=== PATIENT | female | born 1950 | race Hispanic/Latino ===

== ENCOUNTER 2018-06-21 19:45 | Inpatient (IN) | payer MEDICARE, OTHER ==
[2018-06-21] MEDS ORDERED: NACL 0.9% 1000 ML 1,000 ML IV ONE ×2 (20:01→21:18)
--- NOTE | 2018-06-21 20:01 | Emergency Department Report ---
Chief Complaint: Nausea/Vomiting/Diarrhea Stated Complaint: VOMITTING STROKE LIKE SX Time Seen by Provider: 06/21/18 19:54 - HPI History of Present Illness: 3 d hx n/v weakness expressive aphasia since 1030 per the family pt could not tell me what a pen or orellana is, as I held it for her to identify Dr Church aware deficit for over 9 hours- to CT PMH HTN OBESE HPLD HYPOTHYROID CAD DM MSE screening note: Focused history and physical exam performed. Due to findings the following was ordered: ED Disposition for MSE Condition: Stable
--- NOTE | 2018-06-21 20:30 | Cat Scan Report ---
PROCEDURE: CT HEAD/BRAIN WO CON TECHNIQUE: Computerized tomography of the head was performed without contrast material. CT DOSE LENGTH PRODUCT: 920 mGycm HISTORY: expressive aphasia COMPARISONS: None . FINDINGS: Skull and scalp: Normal . Paranasal sinuses: Normal . Ventricles and subarachnoid spaces: Normal . Cerebrum: No evidence of hemorrhage, acute infarction or mass . Cerebellum and brainstem: No evidence of hemorrhage, acute infarction or mass . Vasculature: Normal . Other: None . ASPECTS: 10 IMPRESSION: There is no evidence of an acute cranial process . This document is electronically signed by Prudence Church DO., June 21 2018 08:27:59 PM ET
[2018-06-21] MEDS ORDERED: PEPCID IV ONE (20:37)
[2018-06-21] MEDS ORDERED: ZOFRAN IV ONE (20:37)
[2018-06-21] MEDS ORDERED: ASPIRIN PO ONE (20:37)
[2018-06-21] MEDS ORDERED: HumuLIN R IV ONE (20:40)
--- NOTE | 2018-06-21 20:54 | Emergency Department Report ---
ED Neuro Deficit HPI - General Chief Complaint: Nausea/Vomiting/Diarrhea Stated Complaint: VOMITTING STROKE LIKE SX Time Seen by Provider: 06/21/18 19:54 Source: patient, family, old records reviewed Mode of arrival: Wheelchair Limitations: No Limitations - History of Present Illness Initial Comments: 68-year-old female with a past medical history of [id number] diabetes, hypertension, hypothyroidism, CAD (reported by pt but she had a cath 07/2015 showing normal coronary arteries and EF), obesity, hyperlipidemia presents to the hospital complaining of nausea and vomiting with decreased by mouth intake 3 days and expressive aphasia. Patient states he has not been able to eat or drink myself last several days secondary to vomiting. She states some mild diarrhea. Complains of mild heartburn. Denies fever, dysuria, melena, hematochezia, or hematemesis. At 10:30 AM a family member came to the home and noticed the patient had difficulty communicating. She repeat "I am okay" and she was unable to complete a sentence will repeat one relevant word when a question was asked for example repeated "light" and could not express it is light outside. Patient unsure onset of expressive aphasia but things really started yesterday. Family members gave her some Gatorade after arrival here and states that her symptoms have gradually improved but not completely back to normal. Patient presents with a glucose of 300 and hypertension states she did not take any of her medications today is otherwise compliant. She takes a baby aspirin daily but did not have any today. Patient denies abdominal pain and denies previous abdominal surgeries. PMD: Dr. Wilkerson on previous medical record review pt had a similar presentation in 07/2015. She had n,v, dehydration, expressive aphasia, and elevated trop. She underwent negative cardiac and cva workup (cardiac cath, ct head, cta head/neck brain mri, ct abd/pelvis, cta chest). - Related Data Home Medications: Home Medications Medication Instructions Recorded Confirmed Last Taken Levothyroxine Sodium [Synthroid] 125 mcg PO QDAY 08/18/15 06/21/18 08/16/15 Lisinopril [Zestril TAB] 5 mg PO QDAY 08/18/15 06/21/18 08/16/15 hydroCHLOROthiazide [HCTZ] 25 mg PO QDAY 08/18/15 06/21/18 06/18/18 metFORMIN [Glucophage] 1,000 mg PO BID 08/18/15 06/21/18 08/16/15 Dapagliflozin Propanediol [Farxiga] 10 mg PO DAILY 06/21/18 06/21/18 Unknown Sitagliptin Phosphate [Januvia] 25 mg PO DAILY 06/21/18 06/21/18 Unknown Vitamin D3 1,000 UNIT TAB 1 tab PO DAILY 06/21/18 06/21/18 Unknown Allergies/Adverse Reactions: Allergies Allergy/AdvReac Type Severity Reaction Status Date / Time liraglutide [From Victoza] Allergy Unknown Verified 06/21/18 19:49 ED Review of Systems ROS: Stated complaint: VOMITTING STROKE LIKE SX Other details as noted in HPI Comment: All other systems reviewed and negative ED Past Medical Hx - Past Medical History Hx Hypertension: Yes Hx Heart Attack/AMI: Yes Hx Congestive Heart Failure: No Hx Diabetes: Yes Hx Deep Vein Thrombosis: No Hx Liver Disease: No Hx Sickle Cell Disease: No Hx Asthma: No Hx COPD: No Hx HIV: No Additional medical history: thyroid - Surgical History Past Surgical History?: No Hx Coronary Stent: No Hx Pacemaker: No Hx Internal Defibrillator: No - Social History Smoking Status: Never Smoker Substance Use Type: None - Medications Home Medications: Home Medications Medication Instructions Recorded Confirmed Last Taken Type Levothyroxine Sodium [Synthroid] 125 mcg PO QDAY 08/18/15 06/21/18 08/16/15 History Lisinopril [Zestril TAB] 5 mg PO QDAY 08/18/15 06/21/18 08/16/15 History hydroCHLOROthiazide [HCTZ] 25 mg PO QDAY 08/18/15 06/21/18 06/18/18 History metFORMIN [Glucophage] 1,000 mg PO BID 08/18/15 06/21/18 08/16/15 History Dapagliflozin Propanediol [Farxiga] 10 mg PO DAILY 06/21/18 06/21/18 Unknown History Sitagliptin Phosphate [Januvia] 25 mg PO DAILY 06/21/18 06/21/18 Unknown History Vitamin D3 1,000 UNIT TAB 1 tab PO DAILY 06/21/18 06/21/18 Unknown History ED Neuro Physical Exam - General Limitations: No Limitations Suspected Stroke: Yes - NIHSS Assessment Interval: Baseline 1a. Level of Consciousness: alert/keenly responsive 1b. LOC Questions: answers both correctly 1c. LOC Commands: performs tasks correctly 2. Best Gaze: normal 3. Visual: no visual loss 4. Facial Palsy: normal symmetrical movement 5b. Motor Arm Right: no drift 5a. Motor Arm Left: no drift 6a. Motor Leg Left: no drift 6b. Motor Leg Right: no drift 7. Limb Ataxia: absent 8. Sensory: normal 9. Best Language: mild/moderate aphasia 10. Dysarthria: normal 11. Extinction/Inattention: no abnormality Total Score: 1 Stroke Severity: Minor Stroke - Other Other exam information: General: No limitations, patient is alert in no acute distress Head exam: Atraumatic, normocephalic Eyes exam: Normal appearance, pupils equal reactive to light, extraocular movements intact ENT: Moist mucous membrane, normal oropharynx Neck exam: Normal inspection, full range of motion, no meningismus nontender Respiratory exam: Clear to auscultation bilateral, no wheezes, rales, crackles Cardiovascular: Normal rate and rhythm, normal heart sounds Abdomen: Soft, nondistended, and nontender, with normal bowel sounds, no rebound, or guarding Extremity: Full range of motion normal inspection no deformity Back: Normal Inspection, full range of motion, no tenderness Neurologic: Alert, see nihss Psychiatric: normal affect, normal mood Skin: Warm, dry, intact ED Course Vital Signs 06/21/18 06/21/18 06/21/18 20:30 20:32 20:45 Temperature 99.2 F Pulse Rate 99 H 99 H Respiratory 21 16 18 Rate Blood Pressure Blood Pressure 187/68 [Left] O2 Sat by Pulse 99 98 Oximetry 06/21/18 06/21/18 06/21/18 20:46 21:00 21:16 Temperature Pulse Rate 96 H 105 H 102 H Respiratory 25 H 20 17 Rate Blood Pressure Blood Pressure 165/73 [Left] O2 Sat by Pulse 98 97 100 Oximetry 06/21/18 06/21/18 06/21/18 21:30 21:46 22:00 Temperature Pulse Rate 99 H 100 H 95 H Respiratory 17 20 16 Rate Blood Pressure 171/83 165/73 165/73 Blood Pressure [Left] O2 Sat by Pulse 99 98 99 Oximetry 06/21/18 06/21/18 06/21/18 22:16 22:30 22:46 Temperature Pulse Rate 94 H 92 H 95 H Respiratory 18 15 22 Rate Blood Pressure 175/74 175/74 165/73 Blood Pressure [Left] O2 Sat by Pulse 99 99 99 Oximetry 06/21/18 06/21/18 06/21/18 22:47 23:00 23:16 Temperature Pulse Rate 93 H 93 H 103 H Respiratory 20 19 22 Rate Blood Pressure 166/75 175/77 Blood Pressure 166/75 [Left] O2 Sat by Pulse 98 100 99 Oximetry 06/21/18 06/21/18 06/21/18 23:30 23:46 23:48 Temperature Pulse Rate 96 H 99 H 97 H Respiratory 12 14 20 Rate Blood Pressure 175/77 175/77 Blood Pressure 161/79 [Left] O2 Sat by Pulse 98 98 97 Oximetry 06/22/18 06/22/18 06/22/18 00:00 00:16 00:30 Temperature Pulse Rate 104 H 101 H 98 H Respiratory 21 15 30 H Rate Blood Pressure 175/77 169/71 169/71 Blood Pressure [Left] O2 Sat by Pulse 99 98 97 Oximetry 06/22/18 06/22/18 06/22/18 00:46 01:00 01:16 Temperature Pulse Rate 103 H 102 H 103 H Respiratory 31 H 24 29 H Rate Blood Pressure 160/69 160/69 160/69 Blood Pressure [Left] O2 Sat by Pulse 98 98 97 Oximetry 06/22/18 06/22/18 06/22/18 01:30 01:46 02:08 Temperature Pulse Rate Respiratory 20 19 17 Rate Blood Pressure 160/69 158/75 Blood Pressure [Left] O2 Sat by Pulse 97 97 97 Oximetry 06/22/18 06/22/18 06/22/18 02:16 02:30 02:46 Temperature Pulse Rate Respiratory 14 19 15 Rate Blood Pressure 158/75 157/68 Blood Pressure [Left] O2 Sat by Pulse 97 98 98 Oximetry 06/22/18 06/22/18 06/22/18 03:00 03:16 03:30 Temperature Pulse Rate Respiratory 18 Rate Blood Pressure 160/64 160/64 Blood Pressure [Left] O2 Sat by Pulse 97 97 97 Oximetry 06/22/18 06/22/18 06/22/18 03:46 04:00 04:16 Temperature Pulse Rate Respiratory 29 H 15 Rate Blood Pressure 165/68 165/68 Blood Pressure [Left] O2 Sat by Pulse 95 95 96 Oximetry 06/22/18 04:30 Temperature Pulse Rate Respiratory 14 Rate Blood Pressure 165/68 Blood Pressure [Left] O2 Sat by Pulse 98 Oximetry - Consultations Consultation #1: 06/21/18 21:46 consulted cardiology group [facility] since this group was involved in her care in 2016. Case discussed with Dr. Mosqueda. Since [facility] is [facility] and patient does not follow up with them in the office he defers consultation to the call group. 06/21/18 22:00 case was d/w Dr Jalloh with [facility], will consult - Lab Data Result diagrams: 06/21/18 20:16 06/22/18 01:29 Lab Results 06/21/18 06/21/18 06/21/18 Range/Units 19:51 20:16 20:16 WBC 10.2 (4.5-11.0) K/mm3 RBC 4.67 (3.65-5.03) M/mm3 Hgb 13.0 (10.1-14.3) gm/dl Hct 39.6 (30.3-42.9) % MCV 85 (79-97) fl MCH 28 (28-32) pg MCHC 33 (30-34) % RDW 15.8 H (13.2-15.2) % Plt Count 399 (140-440) K/mm3 VBG pH (7.320-7.420) Sodium 130 L (137-145) mmol/L Potassium 4.4 (3.6-5.0) mmol/L Chloride 89.4 L (98-107) mmol/L Carbon Dioxide 17 L (22-30) mmol/L Anion Gap 28 mmol/L BUN 25 H (7-17) mg/dL Creatinine 1.1 (0.7-1.2) mg/dL Estimated GFR 50 ml/min BUN/Creatinine Ratio 23 % Glucose 350 H (65-100) mg/dL POC Glucose 300 H (70-105) Ketones Quantitative (Negative) Calcium 9.5 (8.4-10.2) mg/dL Total Bilirubin 0.50 (0.1-1.2) mg/dL AST 13 (5-40) units/L ALT 6 L (7-56) units/L Alkaline Phosphatase 73 (35-129) units/L Troponin T 0.200 H* (0.00-0.029) ng/mL Total Protein 7.2 (6.3-8.2) g/dL Albumin 4.0 (3.9-5) g/dL Albumin/Globulin Ratio 1.3 % Triglycerides 133 (2-149) mg/dL Cholesterol 203 H (50-199) mg/dL LDL Cholesterol Direct 152 H (50-130) mg/dL HDL Cholesterol 55 (40-59) mg/dL Cholesterol/HDL Ratio 3.69 % Lipase 20 (13-60) units/L 06/21/18 06/21/18 Range/Units 20:16 20:16 WBC (4.5-11.0) K/mm3 RBC (3.65-5.03) M/mm3 Hgb (10.1-14.3) gm/dl Hct (30.3-42.9) % MCV (79-97) fl MCH (28-32) pg MCHC (30-34) % RDW (13.2-15.2) % Plt Count (140-440) K/mm3 VBG pH 7.327 (7.320-7.420) Sodium (137-145) mmol/L Potassium (3.6-5.0) mmol/L Chloride (98-107) mmol/L Carbon Dioxide (22-30) mmol/L Anion Gap mmol/L BUN (7-17) mg/dL Creatinine (0.7-1.2) mg/dL Estimated GFR ml/min BUN/Creatinine Ratio % Glucose (65-100) mg/dL POC Glucose (70-105) Ketones Quantitative Large (Negative) Calcium (8.4-10.2) mg/dL Total Bilirubin (0.1-1.2) mg/dL AST (5-40) units/L ALT (7-56) units/L Alkaline Phosphatase (35-129) units/L Troponin T (0.00-0.029) ng/mL Total Protein (6.3-8.2) g/dL Albumin (3.9-5) g/dL Albumin/Globulin Ratio % Triglycerides (2-149) mg/dL Cholesterol (50-199) mg/dL LDL Cholesterol Direct (50-130) mg/dL HDL Cholesterol (40-59) mg/dL Cholesterol/HDL Ratio % Lipase (13-60) units/L - EKG Data -: EKG Interpreted by Nd EKG shows normal: sinus rhythm, axis (qrs 6), QRS complexes (qrsd 98), ST-T waves (no stemi) Rate: normal (94) When compared to previous EKG there are: no significant change - Radiology Data Radiology results: report reviewed PROCEDURE: CT HEAD/BRAIN WO CON TECHNIQUE: Computerized tomography of the head was performed without contrast material. CT DOSE LENGTH PRODUCT: 920 mGycm HISTORY: expressive aphasia COMPARISONS: None . FINDINGS: Skull and scalp: Normal . Paranasal sinuses: Normal . Ventricles and subarachnoid spaces: Normal . Cerebrum: No evidence of hemorrhage, acute infarction or mass . Cerebellum and brainstem: No evidence of hemorrhage, acute infarction or mass . Vasculature: Normal . Other: None . ASPECTS: 10 IMPRESSION: There is no evidence of an acute cranial process . XR CHEST 1V AP CLINICAL INDICATION: Female, 68 years of age. WEAKNESS COMPARISON: None available. Findings: Frontal view(s) of the chest obtained. Heart upper limits normal in size. No gross focal consolidation or effusion. No gross pneumothorax. IMPRESSION: No grossly acute findings. - Medical Decision Making pt has ketosis either from dehydration or mild dka in a non insulin dependant diabetic expressive aphasia due to above issue vs cva neuro exam otherwise normal. aphasia improving but some mild difficulty persists. pt tx with NS, regular insulin bolus, and asa 325mg. trop elevation, chronic, no acute ekg changes, lower than previous values, cardiology consulted. urine Collection pending at disposition pt will be admitted to the hospital for further treatment - Differential Diagnosis CVA, ICH, encephalopathy, DKA, dehydration, renal failure, TIA - Thrombolytic Inclusion/Exclusion Thrombolytic Exclusion Criteria: Symptom Onset > 3 Hours Critical Care Time: No Critical care attestation.: If time is entered above; I have spent that time in minutes in the direct care of this critically ill patient, excluding procedure time. ED Disposition Clinical Impression: Expressive aphasia, Elevated troponin, Nausea and vomiting, Hyperglycemia, Ketosis, Dehydration, Essential (primary) hypertension Disposition: OP ADMIT IP TO THIS HOSP Is pt being admited?: Yes Does the pt Need Aspirin: Yes Condition: Stable Time of Disposition: 21:36 (Dr Mauricio/hosp)
[2018-06-21 21:06] LABS: Hematocrit 39.6 % (30.3-42.9); Mean Corpuscular HGB Conc 33 % (30-34); Mean Corpuscular Volume 85 fl (79-97); Platelet Count 399 K/mm3 (140-440); Red Blood Count 4.67 M/mm3 (3.65-5.03); Red Cell Distribution Width 15.8 % (13.2-15.2)
--- NOTE | 2018-06-21 21:12 | XRay Report ---
XR CHEST 1V AP CLINICAL INDICATION: Female, 68 years of age. WEAKNESS COMPARISON: None available. Findings: Frontal view(s) of the chest obtained. Heart upper limits normal in size. No gross focal c onsolidation or effusion. No gross pneumothorax. IMPRESSION: No grossly acute findings. This document is electronically signed by Edmar Alcantar DO., June 21 2018 09:10:42 PM ET
[2018-06-21 21:17] LABS: Calcium 9.5 mg/dL (8.4-10.2)
[2018-06-21 21:35] LABS: Chol/HDL Ratio 3.69 %
[2018-06-21] MEDS ORDERED: D50W (25GM) Syringe IV PRN (22:41)
[2018-06-21] MEDS ORDERED: TYLENOL PO PRN (22:50)
[2018-06-22] MEDS ORDERED: D5W/0.45% NACL/KCL 20 MEQ 20 MEQ/1,000 ML BAG IV ONE ×2 (00:05→08:42)
[2018-06-22] MEDS: HumuLIN R 100 UNITS in NACL 0.9% 99 ML IV SCH ×2 (00:22→02:54)
[2018-06-22] MEDS ORDERED: D5W/0.45% NACL/KCL 20 MEQ 20 MEQ/1,000 ML BAG IV SCH (01:00)
[2018-06-22 02:27] LABS: BUN/Creatinine Ratio 27; Blood Urea Nitrogen 24 mg/dL (7-17); Calcium 8.5 mg/dL (8.4-10.2); Hemolysis Index 19
[2018-06-22 02:58] LABS: Creatine Kinase MB 6.4 ng/mL (0.0-4.0)
[2018-06-22] MEDS ORDERED: ZOFRAN ONE (04:01)
[2018-06-22] MEDS: ZOFRAN IV PRN (04:07)
[2018-06-22 04:12] LABS: Bacteria,Urine 1+ /HPF (Negative); Bilirubin,Urine NEG (Negative); Blood,Urine SM (Negative); Color,Urine Yellow (Yellow); Hyaline Casts,Urine 3 /LPF; Mucus,Urine FEW /HPF; Urobilinogen,Urine < 2.0 mg/dL (<2.0)
--- NOTE | 2018-06-22 07:36 | History and Physical Report ---
CHIEF COMPLAINT: Nausea, vomiting, and diarrhea. Other complaint includes aphasia. HISTORY OF PRESENT ILLNESS: The patient is a 68-year-old female with known history of non-insulin diabetic mellitus who states she has been having nausea, vomiting, and diarrhea, going on for about 3 days and was unable to express herself and kept repeating the same word over and over without being able to explain what she meant. The patient states she has not been able to eat or drink fluid for the last few days because of vomiting and also diarrhea. The patient also complained about some mild heartburn. There was no history of fever or chills and no history of chest pain or shortness of breath. The patient was brought to the Emergency Room for evaluation. After staying for some time in the Emergency Room, the patient was able to start talking and expressing herself again. PAST MEDICAL HISTORY: Pertinent for hypertension, coronary artery disease, status post myocardial infarction, diabetes mellitus, and thyroid disorder. PAST SURGICAL HISTORY: Unremarkable. FAMILY HISTORY: Family history is noncontributory. SOCIAL HISTORY: The patient does not smoke, does not drink alcohol, and does not use illicit drug. MEDICATIONS: The patient is on Synthroid 125 mcg by mouth daily, lisinopril 5 mg by mouth daily, hydrochloride 25 mg by mouth daily, Glucophage 1000 mg by mouth twice daily, Farxiga or dapagliflozin 10 mg by mouth daily. Also, the patient is on Januvia 25 mg by mouth daily and vitamin D3 1000 units tablet 1 by mouth daily. ALLERGIES: THE PATIENT IS ALLERGIC TO LIRAGLUTIDE. REVIEW OF SYSTEMS: CONSTITUTIONAL: There is no fever, no chills, no diaphoresis. HEENT: There is no headache or sore throat. CARDIOVASCULAR SYSTEM: There is no chest pain or orthopnea. RESPIRATORY SYSTEM: There is no shortness of breath or cough. GASTROINTESTINAL SYSTEM: There is nausea. There is vomiting, diarrhea, and heartburn with epigastric discomfort with no constipation. MUSCULOSKELETAL: There is no joint pain or swelling. DERMATOLOGIC: There is no skin rash or itching. GENITOURINARY SYSTEM: There is no dysuria, hematuria, or flank pain. Rest of system review is normal. PHYSICAL EXAMINATION: GENERAL: At the time of exam, the patient was found to be alert, oriented x 3 and in acute distress. VITAL SIGNS: At the initial time of presentation showed temperature of 99.2 degrees Fahrenheit, pulse of 99, respirations 16, blood pressure 187/68, O2 sat of 98% on room air. HEENT: Shows pupils to be equal, round, reactive to light and accommodating. Extraocular muscles are intact. NECK: Supple with no JVD or carotid bruit. CARDIOVASCULAR SYSTEM: Showed normal first and second heart sounds with no gallops or murmur. RESPIRATORY SYSTEM: Showed good air entry on both sides of the lungs with no abnormal breath sounds. GASTROINTESTINAL SYSTEM: Abdomen to be full, soft, nontender with no organomegaly or rigidity. NEUROLOGIC: Shows no focal deficit. MUSCULOSKELETAL SYSTEM: Show no joint swelling or tenderness. DERMATOLOGICAL SYSTEM: Show no skin rash. GENITOURINARY SYSTEM: Showing no costovertebral angle tenderness. PERTINENT LABORATORY AND IMAGING STUDIES: The patient had urinalysis done that shows clear yellow urine with elevated urine ketones and negative urine leukocyte esterase and negative urine nitrite and normal urine WBC with 1+ bacteria. The patient's troponin level was elevated with a value of 0.2. The patient's chemistry shows low sodium of 130, low chloride of 89.4, and low CO2 of 17 with anion gap of 24. The patient's blood glucose level initially was 350 and CBC came back unremarkable. IMAGING STUDIES: The patient had CT of the head without contrast done shows no evidence of acute cranial process. Also, the patient had chest x-ray done that shows no grossly acute findings. DIAGNOSES: 1. Diabetic ketoacidosis. 2. Expressive aphasia. 3. Elevated troponin level. PLAN OF CARE: 1. The patient will be admitted to ICU using DKA protocol. 2. The patient's Accu-Chek will be every hour using the DKA protocol and also basic chemistry will be checked every 2 and 8 hours. 3. The patient will have IV normal saline which we initially run at 150 mL an hour. 4. The patient will have MRI of the brain without contrast done this morning because of expressive aphasia. 5. The patient will continue Cardiology consult with Dr. Jalloh because of elevated troponin level and will have Neurology consult with Dr. Rachael Saunders because of expressive aphasia. The patient will also have a critical care consult with Dr. Akhtar because of ICU admission requiring IV insulin drip. 6. The patient will remain n.p.o. until the patient is out of DKA. 7. The patient's IV fluid will remain normal saline until blood sugar is less than 250 mg per dL during which the patient's IV fluid will be changed to D5 half normal with potassium supplement running at 125 mL an hour. 8. The patient will be on IV Zofran 4 mg every 8 hours as needed for nausea and vomiting and will be on Tylenol 650 mg by mouth every 4 hours as needed for fever. JOB# [id number] OCN/NTS
[2018-06-22 10:35] LABS: Creatine Kinase MB 4.7 ng/mL (0.0-4.0)
[2018-06-22 10:37] LABS: BUN/Creatinine Ratio 23; Blood Urea Nitrogen 18 mg/dL (7-17); Calcium 8.8 mg/dL (8.4-10.2); Hemolysis Index 11
--- NOTE | 2018-06-22 10:44 | Progress Note ---
Assessment and Plan Expressive aphasia, r/o CVA - CT head no acute finding - wait for brain MRI - cont asp, statin, neuro eval Elevated troponin, NSTEMI - cannot start on heparin or therapeutic lovenox till MRI negative - consulted cardiology, cont aspirin and statin DKA - presented with Nausea and vomiting, Hyperglycemia, - s/p insulin drip, will place on SSI, and NPH Ketosis with Dehydration, due to DKA, improving with iv fluid Essential (primary) hypertension, monitor BP, resume home meds, IV hydralazine as needed DVT Px, lovenox Brief History: 68-year-old female with a past medical history of [id number] diabetes, hypertension, hypothyroidism, CAD (reported by pt but she had a cath 07/2015 showing normal coronary arteries and EF), obesity, hyperlipidemia presents to the hospital complaining of nausea and vomiting with decreased by mouth intake 3 days and expressive aphasia. On previous medical record review pt had a similar presentation in 07/2015. She had n,v, dehydration, expressive aphasia, and elevated trop. She underwent negative cardiac and cva workup (cardiac cath, ct head, cta head/neck brain mri, ct abd/pelvis, cta chest). This time she admitted with DKA/possible CVA and elevated troponin. Subjective Date of service: 06/22/18 Interval history: Patient seen and examined States her nausea improved and able to speak better Denies any chest pain or SOB Objective - Exam Narrative Exam: General appearance: no acute distress HEENT: Positive: PERRL, Normocephaly, Mucus Membranes Moist Neck: Positive: neck supple, trachea midline Cardiac: Positive: Reg Rate and Rhythm, S1/S2 Lungs: Positive: clear to auscultation Neuro: Positive: Grossly Intact Abdomen: Positive: Soft. Negative: Tender Skin: Negative: Rash, Wound Musculoskeletal: No Pain Extremities: Absent: edema - Constitutional Vitals: Vital Signs - 12hr 06/21/18 06/21/18 06/21/18 22:46 22:47 23:00 Temperature Pulse Rate 95 H 93 H 93 H Respiratory 22 20 19 Rate Blood Pressure 165/73 166/75 Blood Pressure 166/75 [Left] O2 Sat by Pulse 99 98 100 Oximetry 06/21/18 06/21/18 06/21/18 23:16 23:30 23:46 Temperature Pulse Rate 103 H 96 H 99 H Respiratory 22 12 14 Rate Blood Pressure 175/77 175/77 175/77 Blood Pressure [Left] O2 Sat by Pulse 99 98 98 Oximetry 06/21/18 06/22/18 06/22/18 23:48 00:00 00:16 Temperature Pulse Rate 97 H 104 H 101 H Respiratory 20 21 15 Rate Blood Pressure 175/77 169/71 Blood Pressure 161/79 [Left] O2 Sat by Pulse 97 99 98 Oximetry 06/22/18 06/22/18 06/22/18 00:30 00:46 01:00 Temperature Pulse Rate 98 H 103 H 102 H Respiratory 30 H 31 H 24 Rate Blood Pressure 169/71 160/69 160/69 Blood Pressure [Left] O2 Sat by Pulse 97 98 98 Oximetry 06/22/18 06/22/18 06/22/18 01:16 01:30 01:46 Temperature Pulse Rate 103 H Respiratory 29 H 20 19 Rate Blood Pressure 160/69 160/69 158/75 Blood Pressure [Left] O2 Sat by Pulse 97 97 97 Oximetry 06/22/18 06/22/18 06/22/18 02:08 02:16 02:30 Temperature Pulse Rate Respiratory 17 14 19 Rate Blood Pressure 158/75 Blood Pressure [Left] O2 Sat by Pulse 97 97 98 Oximetry 06/22/18 06/22/18 06/22/18 02:46 03:00 03:16 Temperature Pulse Rate Respiratory 15 Rate Blood Pressure 157/68 160/64 Blood Pressure [Left] O2 Sat by Pulse 98 97 97 Oximetry 06/22/18 06/22/18 06/22/18 03:30 03:46 04:00 Temperature Pulse Rate Respiratory 18 29 H Rate Blood Pressure 160/64 165/68 165/68 Blood Pressure [Left] O2 Sat by Pulse 97 95 95 Oximetry 06/22/18 06/22/18 06/22/18 04:16 04:30 07:00 Temperature Pulse Rate 88 Respiratory 15 14 25 H Rate Blood Pressure 165/68 168/71 Blood Pressure [Left] O2 Sat by Pulse 96 98 96 Oximetry 06/22/18 08:00 Temperature 98.5 F Pulse Rate Respiratory Rate Blood Pressure Blood Pressure [Left] O2 Sat by Pulse Oximetry - Labs CBC & Chem 7: 06/21/18 20:16 06/22/18 22:38 Labs: Abnormal lab results 06/21/18 06/21/1806/21/19 Range/Units 19:51 20:16 20:16 RDW 15.8 H (13.2-15.2) % Sodium 130 L (137-145) mmol/L Chloride 89.4 L (98-107) mmol/L Carbon Dioxide 17 L (22-30) mmol/L BUN 25 H (7-17) mg/dL Glucose 350 H (65-100) mg/dL POC Glucose 300 H (70-105) Magnesium (1.7-2.3) mg/dL ALT 6 L (7-56) units/L CK-MB (CK-2) (0.0-4.0) ng/mL CK-MB (CK-2) Rel Index (0-4) Troponin T 0.200 H* (0.00-0.029) ng/mL Cholesterol 203 H (50-199) mg/dL LDL Cholesterol Direct 152 H (50-130) mg/dL 06/21/18 06/22/18 06/22/18 Range/Units 23:49 01:10 01:22 RDW (13.2-15.2) % Sodium (137-145) mmol/L Chloride (98-107) mmol/L Carbon Dioxide (22-30) mmol/L BUN (7-17) mg/dL Glucose (65-100) mg/dL POC Glucose 230 H 203 H (70-105) Magnesium 1.50 L (1.7-2.3) mg/dL ALT (7-56) units/L CK-MB (CK-2) (0.0-4.0) ng/mL CK-MB (CK-2) Rel Index (0-4) Troponin T (0.00-0.029) ng/mL Cholesterol (50-199) mg/dL LDL Cholesterol Direct (50-130) mg/dL 06/22/18 06/22/18 06/22/18 Range/Units 01:29 01:29 02:54 RDW (13.2-15.2) % Sodium 132 L (137-145) mmol/L Chloride (98-107) mmol/L Carbon Dioxide 14 L (22-30) mmol/L BUN 24 H (7-17) mg/dL Glucose 208 H (65-100) mg/dL POC Glucose 217 H (70-105) Magnesium (1.7-2.3) mg/dL ALT (7-56) units/L CK-MB (CK-2) 6.4 H (0.0-4.0) ng/mL CK-MB (CK-2) Rel Index 9.8 H (0-4) Troponin T 0.134 H* D (0.00-0.029) ng/mL Cholesterol (50-199) mg/dL LDL Cholesterol Direct (50-130) mg/dL 06/22/18 06/22/18 06/22/18 Range/Units 03:51 05:10 06:38 RDW (13.2-15.2) % Sodium (137-145) mmol/L Chloride (98-107) mmol/L Carbon Dioxide (22-30) mmol/L BUN (7-17) mg/dL Glucose (65-100) mg/dL POC Glucose 210 H 200 H 199 H (70-105) Magnesium (1.7-2.3) mg/dL ALT (7-56) units/L CK-MB (CK-2) (0.0-4.0) ng/mL CK-MB (CK-2) Rel Index (0-4) Troponin T (0.00-0.029) ng/mL Cholesterol (50-199) mg/dL LDL Cholesterol Direct (50-130) mg/dL 06/22/18 06/22/18 06/22/18 Range/Units 07:36 08:38 09:44 RDW (13.2-15.2) % Sodium (137-145) mmol/L Chloride (98-107) mmol/L Carbon Dioxide (22-30) mmol/L BUN (7-17) mg/dL Glucose (65-100) mg/dL POC Glucose 169 H 184 H 183 H (70-105) Magnesium (1.7-2.3) mg/dL ALT (7-56) units/L CK-MB (CK-2) (0.0-4.0) ng/mL CK-MB (CK-2) Rel Index (0-4) Troponin T (0.00-0.029) ng/mL Cholesterol (50-199) mg/dL LDL Cholesterol Direct (50-130) mg/dL 06/22/18 Range/Units 09:57 RDW (13.2-15.2) % Sodium 134 L (137-145) mmol/L Chloride (98-107) mmol/L Carbon Dioxide 18 L (22-30) mmol/L BUN 18 H (7-17) mg/dL Glucose 190 H (65-100) mg/dL POC Glucose (70-105) Magnesium (1.7-2.3) mg/dL ALT (7-56) units/L CK-MB (CK-2) 4.7 H (0.0-4.0) ng/mL CK-MB (CK-2) Rel Index 7.3 H (0-4) Troponin T 0.076 H D (0.00-0.029) ng/mL Cholesterol (50-199) mg/dL LDL Cholesterol Direct (50-130) mg/dL
[2018-06-22] MEDS ORDERED: NON-FORMULARY (Dapagliflozin Propanediol [Farxiga] 10 MG) PO SCH (12:00)
[2018-06-22] MEDS ORDERED: LEVOTHYROXINE SODIUM 125 MCG PO SCH (12:00)
[2018-06-22] MEDS ORDERED: ZESTRIL PO SCH (12:00)
[2018-06-22] MEDS ORDERED: NACL 0.9% 1000 ML 1,000 ML ONE (12:28)
[2018-06-22] MEDS: NACL 0.9% 1000 ML 1,000 ML IV SCH ×2 (12:45→22:32)
[2018-06-22] MEDS ORDERED: HumuLIN R ONE (12:55)
[2018-06-22] MEDS ORDERED: ZESTRIL ONE (12:56)
[2018-06-22] MEDS ORDERED: ASPIRIN ONE (12:57)
[2018-06-22] MEDS: ZESTRIL PO SCH (12:59)
[2018-06-22] MEDS: ASPIRIN PO SCH (12:59)
[2018-06-22] MEDS: HumuLIN R SUB-Q SCH ×3 (13:05→22:31)
--- NOTE | 2018-06-22 13:35 | Consultation ---
History of Present Illness Consult date: 06/22/18 Requesting physician: MARY SANCHEZ Reason for consult: other (DKA) History of present illness: PULMONARY/CCM CONSULT NOTE (Full dictation # ) Please see dictated notes for full details Medications and Allergies Allergies Allergy/AdvReac Type Severity Reaction Status Date / Time liraglutide [From Victoza] Allergy Unknown Verified 06/21/18 19:49 Home Medications Medication Instructions Recorded Confirmed Last Taken Type Levothyroxine Sodium [Synthroid] 125 mcg PO QDAY 08/18/15 06/21/18 08/16/15 History Lisinopril [Zestril TAB] 5 mg PO QDAY 08/18/15 06/21/18 08/16/15 History hydroCHLOROthiazide [HCTZ] 25 mg PO QDAY 08/18/15 06/21/18 06/18/18 History metFORMIN [Glucophage] 1,000 mg PO BID 08/18/15 06/21/18 08/16/15 History Dapagliflozin Propanediol [Farxiga] 10 mg PO DAILY 06/21/18 06/21/18 Unknown History Sitagliptin Phosphate [Januvia] 25 mg PO DAILY 06/21/18 06/21/18 Unknown History Vitamin D3 1,000 UNIT TAB 1 tab PO DAILY 06/21/18 06/21/18 Unknown History Active Meds: Active Medications Acetaminophen (Tylenol) 650 mg PO Q4H PRN PRN Reason: Fever >101 Aspirin (Aspirin) 325 mg PO QDAY CHRISTINA Last Admin: 06/22/18 12:59 Dose: 325 mg Documented by: Atorvastatin Calcium (Lipitor) 40 mg PO QHS CHRISTINA Dextrose (D50w (25gm) Syringe) 0 ml IV PRN PRN PRN Reason: Hypoglycemia Sodium Chloride (Nacl 0.9% 1000 Ml) 1,000 mls @ 100 mls/hr IV DIRECT CHRISTINA Last Admin: 06/22/18 12:45 Dose: 100 mls/hr Documented by: Insulin Human NPH (Humulin N) 5 unit SUB-Q BIDDIAB CHRISTINA Insulin Human Regular (Humulin R) 0 units SUB-Q ACHS CHRISTINA; Protocol Last Admin: 06/22/18 13:05 Dose: 1 units Documented by: Levothyroxine Sodium (Synthroid) 125 mcg PO QDAY CHRISTINA Lisinopril (Zestril) 5 mg PO QDAY CHRISTINA Last Admin: 06/22/18 12:59 Dose: 5 mg Documented by: Miscellaneous Medication (Dapagliflozin Propanediol [Farxiga]) 10 mg PO DAILY [facility]LY [facility], 1928–1983 Miscellaneous Medication (Vitamin D3 1,000 Unit Tab) 1 tab PO DAILY FOR[facility]LY [facility], 1928–1983 Ondansetron HCl (Zofran) 4 mg IV Q8H PRN PRN Reason: Nausea And Vomiting Last Admin: 06/22/18 04:07 Dose: 4 mg Documented by: Physical Examination Vital signs: Vital Signs Pulse Resp Pulse Ox 99 H 21 99 06/21/18 20:30 06/21/18 20:30 06/21/18 20:30 Results - Laboratory Findings CBC and BMP: 06/21/18 20:16 06/22/18 09:57 Abnormal lab findings: Abnormal Labs 06/21/18 06/21/18 06/21/18 19:51 20:16 20:16 RDW 15.8 H Sodium 130 L Chloride 89.4 L Carbon Dioxide 17 L BUN 25 H Glucose 350 H POC Glucose 300 H Magnesium ALT 6 L CK-MB (CK-2) CK-MB (CK-2) Rel Index Troponin T 0.200 H* Cholesterol 203 H LDL Cholesterol Direct 152 H 06/21/18 06/22/18 06/22/18 23:49 01:10 01:22 RDW Sodium Chloride Carbon Dioxide BUN Glucose POC Glucose 230 H 203 H Magnesium 1.50 L ALT CK-MB (CK-2) CK-MB (CK-2) Rel Index Troponin T Cholesterol LDL Cholesterol Direct 06/22/18 06/22/18 06/22/18 01:29 01:29 02:54 RDW Sodium 132 L Chloride Carbon Dioxide 14 L BUN 24 H Glucose 208 H POC Glucose 217 H Magnesium ALT CK-MB (CK-2) 6.4 H CK-MB (CK-2) Rel Index 9.8 H Troponin T 0.134 H* D Cholesterol LDL Cholesterol Direct 06/22/18 06/22/18 06/22/18 03:51 05:10 06:38 RDW Sodium Chloride Carbon Dioxide BUN Glucose POC Glucose 210 H 200 H 199 H Magnesium ALT CK-MB (CK-2) CK-MB (CK-2) Rel Index Troponin T Cholesterol LDL Cholesterol Direct 06/22/18 06/22/18 06/22/18 07:36 08:38 09:44 RDW Sodium Chloride Carbon Dioxide BUN Glucose POC Glucose 169 H 184 H 183 H Magnesium ALT CK-MB (CK-2) CK-MB (CK-2) Rel Index Troponin T Cholesterol LDL Cholesterol Direct 06/22/18 06/22/18 06/22/18 09:57 10:56 12:35 RDW Sodium 134 L Chloride Carbon Dioxide 18 L BUN 18 H Glucose 190 H POC Glucose 169 H 175 H Magnesium ALT CK-MB (CK-2) 4.7 H CK-MB (CK-2) Rel Index 7.3 H Troponin T 0.076 H D Cholesterol LDL Cholesterol Direct
--- NOTE | 2018-06-22 13:59 | Progress Note ---
Subjective Date of service: 06/22/18 Interval history: patient seen and assessed she is neuro stable aphasia has gone recommend MRI and carotid/ ECHO suspect diabetes is cause full note is dictated Objective - Vital Sign Vital Signs - 12hr 06/22/18 06/22/18 06/22/18 02:08 02:16 02:30 Temperature Pulse Rate Respiratory 17 14 19 Rate Blood Pressure 158/75 O2 Sat by Pulse 97 97 98 Oximetry 06/22/18 06/22/18 06/22/18 02:46 03:00 03:16 Temperature Pulse Rate Respiratory 15 Rate Blood Pressure 157/68 160/64 O2 Sat by Pulse 98 97 97 Oximetry 06/22/18 06/22/18 06/22/18 03:30 03:46 04:00 Temperature Pulse Rate Respiratory 18 29 H Rate Blood Pressure 160/64 165/68 165/68 O2 Sat by Pulse 97 95 95 Oximetry 06/22/18 06/22/18 06/22/18 04:16 04:30 07:00 Temperature Pulse Rate 88 Respiratory 15 14 25 H Rate Blood Pressure 165/68 168/71 O2 Sat by Pulse 96 98 96 Oximetry 06/22/18 06/22/18 06/22/18 08:00 09:00 10:00 Temperature 98.5 F Pulse Rate 89 84 Respiratory 37 H 20 Rate Blood Pressure 168/68 172/75 O2 Sat by Pulse 95 99 Oximetry 06/22/18 06/22/18 11:00 12:39 Temperature Pulse Rate 85 Respiratory 24 Rate Blood Pressure 175/82 170/67 O2 Sat by Pulse 98 Oximetry - Laboratory Findings CBC and BMP: 06/21/18 20:16 06/22/18 09:57 Abnormal Lab Findings: Abnormal Labs 06/21/18 06/21/18 06/21/18 19:51 20:16 20:16 RDW 15.8 H Sodium 130 L Chloride 89.4 L Carbon Dioxide 17 L BUN 25 H Glucose 350 H POC Glucose 300 H Magnesium ALT 6 L CK-MB (CK-2) CK-MB (CK-2) Rel Index Troponin T 0.200 H* Cholesterol 203 H LDL Cholesterol Direct 152 H 06/21/18 06/22/18 06/22/18 23:49 01:10 01:22 RDW Sodium Chloride Carbon Dioxide BUN Glucose POC Glucose 230 H 203 H Magnesium 1.50 L ALT CK-MB (CK-2) CK-MB (CK-2) Rel Index Troponin T Cholesterol LDL Cholesterol Direct 06/22/18 06/22/18 06/22/18 01:29 01:29 02:54 RDW Sodium 132 L Chloride Carbon Dioxide 14 L BUN 24 H Glucose 208 H POC Glucose 217 H Magnesium ALT CK-MB (CK-2) 6.4 H CK-MB (CK-2) Rel Index 9.8 H Troponin T 0.134 H* D Cholesterol LDL Cholesterol Direct 06/22/18 06/22/18 06/22/18 03:51 05:10 06:38 RDW Sodium Chloride Carbon Dioxide BUN Glucose POC Glucose 210 H 200 H 199 H Magnesium ALT CK-MB (CK-2) CK-MB (CK-2) Rel Index Troponin T Cholesterol LDL Cholesterol Direct 06/22/18 06/22/18 06/22/18 07:36 08:38 09:44 RDW Sodium Chloride Carbon Dioxide BUN Glucose POC Glucose 169 H 184 H 183 H Magnesium ALT CK-MB (CK-2) CK-MB (CK-2) Rel Index Troponin T Cholesterol LDL Cholesterol Direct 06/22/18 06/22/18 06/22/18 09:57 10:56 12:35 RDW Sodium 134 L Chloride Carbon Dioxide 18 L BUN 18 H Glucose 190 H POC Glucose 169 H 175 H Magnesium ALT CK-MB (CK-2) 4.7 H CK-MB (CK-2) Rel Index 7.3 H Troponin T 0.076 H D Cholesterol LDL Cholesterol Direct
--- NOTE | 2018-06-22 14:20 | Progress Note ---
Assessment and Plan Patient awake. Resting on room air. O2 saturation 95%. No complaint of chest pain or shortness of breath or cough at this time. - Patient Problems (1) Chest pain Current Visit: No Status: Acute Qualifiers: Chest pain type: unspecified Qualified Code(s): R07.9 - Chest pain, unspecified Plan to address problem: Troponin is elevated. Recommend to consult cardiology. (2) Dehydration Current Visit: Yes Status: Acute Plan to address problem: Improved. (3) Nausea and vomiting Current Visit: Yes Status: Acute Plan to address problem: On Zofran. (4) Essential (primary) hypertension Current Visit: Yes Status: Chronic Plan to address problem: Management as per primary care. (5) Diabetes mellitus Current Visit: No Status: Chronic Qualifiers: Diabetes mellitus type: type 2 Diabetes mellitus complication status: without complication Qualified Code(s): E11.9 - Type 2 diabetes mellitus without complications Plan to address problem: Management as per primary care. Subjective Date of service: 06/22/18 Interval history: Patient awake. Resting on room air. O2 saturation 95%. No complaint of chest pain or shortness of breath or cough at this time. Objective Vital Signs - 12hr 06/22/18 06/22/18 06/22/18 02:16 02:30 02:46 Temperature Pulse Rate Respiratory 14 19 15 Rate Blood Pressure 158/75 157/68 O2 Sat by Pulse 97 98 98 Oximetry 06/22/18 06/22/18 06/22/18 03:00 03:16 03:30 Temperature Pulse Rate Respiratory 18 Rate Blood Pressure 160/64 160/64 O2 Sat by Pulse 97 97 97 Oximetry 06/22/18 06/22/18 06/22/18 03:46 04:00 04:16 Temperature Pulse Rate Respiratory 29 H 15 Rate Blood Pressure 165/68 165/68 O2 Sat by Pulse 95 95 96 Oximetry 06/22/18 06/22/18 06/22/18 04:30 07:00 08:00 Temperature 98.5 F Pulse Rate 88 Respiratory 14 25 H Rate Blood Pressure 165/68 168/71 O2 Sat by Pulse 98 96 Oximetry 06/22/18 06/22/18 06/22/18 09:00 10:00 11:00 Temperature Pulse Rate 89 84 85 Respiratory 37 H 20 24 Rate Blood Pressure 168/68 172/75 175/82 O2 Sat by Pulse 95 99 98 Oximetry 06/22/18 06/22/18 06/22/18 12:39 13:03 14:05 Temperature Pulse Rate 83 Respiratory 18 Rate Blood Pressure 170/67 184/68 184/84 O2 Sat by Pulse 97 Oximetry 06/22/18 14:06 Temperature 98.1 F Pulse Rate Respiratory Rate Blood Pressure O2 Sat by Pulse Oximetry Constitutional: no acute distress, alert Eyes: non-icteric ENT: oropharynx moist Neck: supple, no lymphadenopathy Ascultation: Bilateral: clear Cardiovascular: regular rate and rhythm Gastrointestinal: normoactive bowel sounds, soft, non-tender Integumentary: normal Extremities: no cyanosis, no edema Neurologic: normal mental status Psychiatric: mood appropriate CBC and BMP: 06/21/18 20:16 06/22/18 09:57 Abnormal lab findings: Abnormal Labs 06/21/18 06/21/18 06/21/18 19:51 20:16 20:16 RDW 15.8 H Sodium 130 L Chloride 89.4 L Carbon Dioxide 17 L BUN 25 H Glucose 350 H POC Glucose 300 H Magnesium ALT 6 L CK-MB (CK-2) CK-MB (CK-2) Rel Index Troponin T 0.200 H* Cholesterol 203 H LDL Cholesterol Direct 152 H 06/21/18 06/22/18 06/22/18 23:49 01:10 01:22 RDW Sodium Chloride Carbon Dioxide BUN Glucose POC Glucose 230 H 203 H Magnesium 1.50 L ALT CK-MB (CK-2) CK-MB (CK-2) Rel Index Troponin T Cholesterol LDL Cholesterol Direct 06/22/18 06/22/18 06/22/18 01:29 01:29 02:54 RDW Sodium 132 L Chloride Carbon Dioxide 14 L BUN 24 H Glucose 208 H POC Glucose 217 H Magnesium ALT CK-MB (CK-2) 6.4 H CK-MB (CK-2) Rel Index 9.8 H Troponin T 0.134 H* D Cholesterol LDL Cholesterol Direct 06/22/18 06/22/18 06/22/18 03:51 05:10 06:38 RDW Sodium Chloride Carbon Dioxide BUN Glucose POC Glucose 210 H 200 H 199 H Magnesium ALT CK-MB (CK-2) CK-MB (CK-2) Rel Index Troponin T Cholesterol LDL Cholesterol Direct 06/22/18 06/22/18 06/22/18 07:36 08:38 09:44 RDW Sodium Chloride Carbon Dioxide BUN Glucose POC Glucose 169 H 184 H 183 H Magnesium ALT CK-MB (CK-2) CK-MB (CK-2) Rel Index Troponin T Cholesterol LDL Cholesterol Direct 06/22/18 06/22/18 06/22/18 09:57 10:56 12:35 RDW Sodium 134 L Chloride Carbon Dioxide 18 L BUN 18 H Glucose 190 H POC Glucose 169 H 175 H Magnesium ALT CK-MB (CK-2) 4.7 H CK-MB (CK-2) Rel Index 7.3 H Troponin T 0.076 H D Cholesterol LDL Cholesterol Direct Chest x-ray: report reviewed, image reviewed (No acute Process)
--- NOTE | 2018-06-22 14:44 | Consultation ---
History of Present Illness Consult date: 06/22/18 Requesting physician: FARAZ ERVIN Consult reason: elevated troponin History of present illness: The pt is a 68-year-old female with a past medical history of diabetes, hypertension, HLP, hypothyroidism, obesity. She presented with c/o persistent nausea and vomiting with decreased by mouth intake 3 days. She believed she had food poisoning. Per the chart, pt also reported expressive aphasia, although she does not mention this on our evaluation. Pt found to have DKA following arrival. She was also found to have elevated troponins and thus cardiology has been consulted. Pt underwent LHC in 07/2015 for elevated troponins which showed normal coronaries and normal LV function. Pt denies any prior cardiac issues, including CAD, HF or arrhythmia. She does not regularly see a inseminator. Past History Past Medical History: diabetes, hypertension, hyperlipidemia, hypothyroidism Medications and Allergies Allergies Allergy/AdvReac Type Severity Reaction Status Date / Time liraglutide [From Victoza] Allergy Unknown Verified 06/21/18 19:49 Home Medications Medication Instructions Recorded Confirmed Last Taken Type Levothyroxine Sodium [Synthroid] 125 mcg PO QDAY 08/18/15 06/21/18 08/16/15 History Lisinopril [Zestril TAB] 5 mg PO QDAY 08/18/15 06/21/18 08/16/15 History hydroCHLOROthiazide [HCTZ] 25 mg PO QDAY 08/18/15 06/21/18 06/18/18 History metFORMIN [Glucophage] 1,000 mg PO BID 08/18/15 06/21/18 08/16/15 History Dapagliflozin Propanediol [Farxiga] 10 mg PO DAILY 06/21/18 06/21/18 Unknown History Sitagliptin Phosphate [Januvia] 25 mg PO DAILY 06/21/18 06/21/18 Unknown History Vitamin D3 1,000 UNIT TAB 1 tab PO DAILY 06/21/18 06/21/18 Unknown History Active Meds: Active Medications Acetaminophen (Tylenol) 650 mg PO Q4H PRN PRN Reason: Fever >101 Aspirin (Aspirin) 325 mg PO QDAY [facility] Last Admin: 06/22/18 12:59 Dose: 325 mg Documented by: Atorvastatin Calcium (Lipitor) 40 mg PO QHS [facility] Dextrose (D50w (25gm) Syringe) 0 ml IV PRN PRN PRN Reason: Hypoglycemia Sodium Chloride (Nacl 0.9% 1000 Ml) 1,000 mls @ 100 mls/hr IV DIRECT [facility] Last Admin: 06/22/18 12:45 Dose: 100 mls/hr Documented by: Insulin Human NPH (Humulin N) 5 unit SUB-Q BIDDIAB [facility] Insulin Human Regular (Humulin R) 0 units SUB-Q ACHS [facility]; Protocol Last Admin: 06/22/18 13:05 Dose: 1 units Documented by: Levothyroxine Sodium (Synthroid) 125 mcg PO QDAY [facility] Lisinopril (Zestril) 5 mg PO QDAY [facility] Last Admin: 06/22/18 12:59 Dose: 5 mg Documented by: Miscellaneous Medication (Dapagliflozin Propanediol [Farxiga]) 10 mg PO DAILY [facility] Miscellaneous Medication (Vitamin D3 1,000 Unit Tab) 1 tab PO DAILY [facility] Ondansetron HCl (Zofran) 4 mg IV Q8H PRN PRN Reason: Nausea And Vomiting Last Admin: 06/22/18 04:07 Dose: 4 mg Documented by: Review of Systems Constitutional: no weight loss, no weight gain, no fever, no chills, no sweats Ears, nose, mouth and throat: no ear pain, no nose pain, no sinus pressure, no sinus pain Cardiovascular: no chest pain, no orthopnea, no palpitations, no rapid/irregular heart beat, no edema, no syncope, no lightheadedness, no shortness of breath, no dyspnea on exertion, no leg edema Respiratory: no cough, no shortness of breath, no dyspnea on exertion, no congestion, no wheezing, no pain Gastrointestinal: nausea, vomiting, no diarrhea, no constipation, no change in bowel habits Genitourinary Female: no pelvic pain, no flank pain, no dysuria, no urinary frequency, no urgency Musculoskeletal: no neck stiffness, no neck pain, no shooting arm pain, no arm numbness/tingling, no low back pain, no shooting leg pain Integumentary: no rash, no pruritis, no redness, no sores, no wounds Neurological: no head injury, no paralysis, no weakness, no parathesias, no numbness, no tingling, no seizures, no syncope Psychiatric: no anxiety Endocrine: no cold intolerance, no heat intolerance Hematologic/Lymphatic: no easy bruising, no easy bleeding Allergic/Immunologic: no urticaria, no wheezing Physical Examination Vital Signs Pulse Resp Pulse Ox 99 H 21 99 06/21/18 20:30 06/21/18 20:30 06/21/18 20:30 General appearance: no acute distress HEENT: Positive: PERRL, Normocephaly, Mucus Membranes Moist Neck: Positive: neck supple, trachea midline Cardiac: Positive: Reg Rate and Rhythm, S1/S2 Lungs: Positive: clear to auscultation Neuro: Positive: Grossly Intact Abdomen: Positive: Soft. Negative: Tender Skin: Negative: Rash, Wound Musculoskeletal: No Pain Extremities: Absent: edema Results 06/21/18 20:16 06/22/18 09:57 Cardiac Enzymes 06/21/18 06/22/18 06/22/18 Range/Units 20:16 01:29 09:57 AST 13 (5-40) units/L CK-MB (CK-2) 6.4 H 4.7 H (0.0-4.0) ng/mL Lipids 06/21/18 Range/Units 20:16 Triglycerides 133 (2-149) mg/dL Cholesterol 203 H (50-199) mg/dL HDL Cholesterol 55 (40-59) mg/dL Cholesterol/HDL Ratio 3.69 % CBC 06/21/18 Range/Units 20:16 WBC 10.2 (4.5-11.0) K/mm3 RBC 4.67 (3.65-5.03) M/mm3 Hgb 13.0 (10.1-14.3) gm/dl Hct 39.6 (30.3-42.9) % Plt Count 399 (140-440) K/mm3 Comprehensive Metabolic Panel 06/21/18 06/22/18 06/22/18 Range/Units 20:16 01:29 09:57 Sodium 130 L 132 L 134 L (137-145) mmol/L Potassium 4.4 3.9 4.0 (3.6-5.0) mmol/L Chloride 89.4 L 98.6 100.2 (98-107) mmol/L Carbon Dioxide 17 L 14 L 18 L (22-30) mmol/L BUN 25 H 24 H 18 H (7-17) mg/dL Creatinine 1.1 0.9 0.8 (0.7-1.2) mg/dL Glucose 350 H 208 H 190 H (65-100) mg/dL Calcium 9.5 8.5 8.8 (8.4-10.2) mg/dL AST 13 (5-40) units/L ALT 6 L (7-56) units/L Alkaline Phosphatase 73 (35-129) units/L Total Protein 7.2 (6.3-8.2) g/dL Albumin 4.0 (3.9-5) g/dL - Imaging and Cardiology Echo: pending Cardiac cath: report reviewed (07/2015 for elevated troponins which showed normal coronaries and normal LV function) EKG: report reviewed, image reviewed EKG interpretations - Telemetry EKG Rhythm: Sinus Rhythm - EKG Sinus rhythms and dysrhythmias: sinus rhythm Repolarization changes or abnormalities: ST or T wave suggestive of ischemia Assessment and Plan Currently stable cardiac status. Pt with troponin elevation pattern c/w NSTEMI type II, pt denies any cardiac complaints. Also noted to have abnormal ECG, which was abnormal in 2016. Pt underwent LHC in 2016 which showed normal coronaries and normal LV function. F/u echo and consider stress test prior to hospital discharge. Cont ASA and lipitor. Optimize BPs - initiate lopressor, titrate home lisinopril as tolerated. The patient has been seen in conjunction with Dr. Eros Burnett who agrees with the assessment and plan of care. - Patient Problems (1) DKA (diabetic ketoacidoses) Current Visit: Yes Status: Acute (2) NSTEMI (non-ST elevated myocardial infarction) Current Visit: Yes Status: Acute Plan to address problem: type 2 (3) Abnormal ECG Current Visit: Yes Status: Chronic (4) HTN (hypertension) Current Visit: Yes Status: Chronic (5) Hyperlipidemia Current Visit: Yes Status: Chronic (6) Diabetes mellitus Current Visit: Yes Status: Chronic Qualifiers: Diabetes mellitus type: type 2 Diabetes mellitus complication status: without complication Qualified Code(s): E11.9 - Type 2 diabetes mellitus without complications (7) Hypothyroidism Current Visit: Yes Status: Chronic
[2018-06-22 15:52] LABS: BUN/Creatinine Ratio 19; Blood Urea Nitrogen 15 mg/dL (7-17); Calcium 8.7 mg/dL (8.4-10.2); Hemolysis Index 6
[2018-06-22] MEDS: VITAMIN D3 PO SCH (22:31)
[2018-06-22] MEDS: LOPRESSOR PO SCH (22:31)
[2018-06-22 23:05] LABS: BUN/Creatinine Ratio 17; Blood Urea Nitrogen 12 mg/dL (7-17); Calcium 8.3 mg/dL (8.4-10.2); Hemolysis Index 4
[2018-06-23] MEDS ORDERED: MAGNESIUM SULFATE IV ONE (00:04)
[2018-06-23] MEDS ORDERED: MAGNESIUM SULFATE 1 GM in NACL 0.9% 50 ML IV ONE (01:30)
--- NOTE | 2018-06-23 02:57 | Consultation ---
HISTORY OF PRESENT ILLNESS: A 68-year-old female admitted by the Emergency Room at [facility]. This patient had presented to the Emergency Room with the onset of speech difficulty, aphasia. She came on following a 2 to 3 day history of vomiting due to eating undercooked shrimp at a [place] restaurant. She was presented with vomiting, ____ like symptoms. Her symptoms was very suggestive of having a stroke. She has a prior history of hypertension, hypothyroidism, obesity, coronary artery disease and diabetes mellitus as well. She was also noted to have a blood sugar, which was markedly elevated per the daughter's history. There are no other history of symptoms such as this in the past. I did review over her CAT scan of the head and CT scan showed normal-appearing ventricular system, pablo and white matter have normal appearance. No focal asymmetries are present. The patient's distal territory of the middle cerebral artery complex was entirely without any changes. Cortical sulcal and gyral pattern is unremarkable. Ventricular system is normal. The pineal gland is densely calcified and has a ____ type of appearance (anatomical variation). PHYSICAL EXAMINATION: NEUROLOGIC: She is alert and appropriate. Speech is clear. I did a very comprehensive aphasia evaluation on her and is quite unremarkable. The patient has full speech. Affect appropriate. Label Maker strength is equal. Motor tone is normal. Motor and sensory examination is otherwise unremarkable without any focal weakness. The patient's cranial nerves 2-12 are intact and she has symmetrical gaze and I do not find any focal limb weakness. RECOMMENDATION: Check for evidence of possible stroke with MRI. Would get a carotid artery ultrasound. Thank you very much. JOB# [id number] LUCIA/NTS
[2018-06-23 07:10] LABS: BUN/Creatinine Ratio 18; Blood Urea Nitrogen 11 mg/dL (7-17); Calcium 8.5 mg/dL (8.4-10.2); Hemolysis Index 11
[2018-06-23] MEDS: SYNTHROID PO SCH (08:23)
[2018-06-23] MEDS: HumuLIN R SUB-Q SCH ×2 (08:30→21:39)
[2018-06-23] MEDS: VITAMIN D3 PO SCH (09:59)
[2018-06-23] MEDS: ASPIRIN PO SCH (09:59)
[2018-06-23] MEDS: ZESTRIL PO SCH (10:00)
[2018-06-23] MEDS: LOPRESSOR PO SCH ×2 (10:00→21:32)
[2018-06-23] MEDS ORDERED: SYNTHROID PO SCH (10:00)
[2018-06-23] MEDS: APRESOLINE IV PRN (10:53)
--- NOTE | 2018-06-23 11:48 | Progress Note ---
Assessment and Plan Currently stable cardiac status. Pt with troponin elevation pattern c/w NSTEMI type II, pt denies any cardiac complaints. Also noted to have abnormal ECG, which was abnormal in 2016. Pt underwent LHC in 2016 which showed normal coronaries and normal LV function. F/u echo and plan for stress test in AM. NPO after MN. Cont ASA and lipitor. Optimize BPs - increase lisinopril and initiate hydralazine. cont lopressor. The patient has been seen in conjunction with Dr. Eros Burnett who agrees with the assessment and plan of care. - Patient Problems (1) DKA (diabetic ketoacidoses) Current Visit: Yes Status: Acute (2) NSTEMI (non-ST elevated myocardial infarction) Current Visit: Yes Status: Acute (3) Abnormal ECG Current Visit: Yes Status: Chronic (4) HTN (hypertension) Current Visit: Yes Status: Chronic (5) Hyperlipidemia Current Visit: Yes Status: Chronic (6) Diabetes mellitus Current Visit: Yes Status: Chronic Qualifiers: Diabetes mellitus type: type 2 Diabetes mellitus complication status: without complication Qualified Code(s): E11.9 - Type 2 diabetes mellitus without complications (7) Hypothyroidism Current Visit: Yes Status: Chronic Subjective Date of service: 06/23/18 Principal diagnosis: DKA Interval history: pt resting in bed, no current complaints. Objective Last Vital Signs Temp 98.2 F 06/23/18 09:27 Pulse 76 06/23/18 10:53 Resp 18 06/23/18 09:27 BP 218/103 06/23/18 10:53 Pulse Ox 96 06/23/18 09:27 - Physical Examination General: No Apparent Distress HEENT: Positive: PERRL, Normocephaly, Mucus Membranes Moist Neck: Positive: neck supple, trachea midline Cardiac: Positive: Reg Rate and Rhythm, S1/S2 Lungs: Positive: clear to auscultation Neuro: Positive: Grossly Intact Abdomen: Positive: Soft. Negative: Tender Skin: Negative: Rash, Wound Musculoskeletal: No Pain Extremities: Absent: edema - Labs and Meds Comprehensive Metabolic Panel 06/22/18 06/22/18 06/23/18 Range/Units 15:10 22:38 05:30 Sodium 131 L 131 L 130 L (137-145) mmol/L Potassium 4.0 4.1 3.8 (3.6-5.0) mmol/L Chloride 99.5 96.7 L 98.6 (98-107) mmol/L Carbon Dioxide 20 L 22 22 (22-30) mmol/L BUN 15 12 11 (7-17) mg/dL Creatinine 0.8 0.7 0.6 L (0.7-1.2) mg/dL Glucose 244 H 229 H 246 H (65-100) mg/dL Calcium 8.7 8.3 L 8.5 (8.4-10.2) mg/dL - Imaging and Cardiology EKG: report reviewed, image reviewed Echo: pending Cardiac cath: report reviewed (07/2015 for elevated troponins which showed normal coronaries and normal LV function) - EKG Sinus rhythms and dysrhythmias: sinus rhythm Repolarization changes or abnormalities: ST or T wave suggestive of ischemia
[2018-06-23] MEDS ORDERED: ZESTRIL PO ONE (12:47)
--- NOTE | 2018-06-23 13:31 | Progress Note ---
Assessment and Plan Patient awake. Resting on room air. O2 saturation 95%. No complaint of chest pain or shortness of breath or cough at this time.Patient morbidly Obese.Denies sleep problems. - Patient Problems (1) Chest pain Current Visit: No Status: Acute Qualifiers: Chest pain type: unspecified Qualified Code(s): R07.9 - Chest pain, unspecified Plan to address problem: Troponin is elevated. Recommend to consult cardiology. (2) Dehydration Current Visit: Yes Status: Acute Plan to address problem: Improved. (3) Nausea and vomiting Current Visit: Yes Status: Acute Plan to address problem: On Zofran. (4) Essential (primary) hypertension Current Visit: Yes Status: Chronic Plan to address problem: Management as per primary care. (5) Diabetes mellitus Current Visit: Yes Status: Chronic Qualifiers: Diabetes mellitus type: type 2 Diabetes mellitus complication status: w ithout complication Qualified Code(s): E11.9 - Type 2 diabetes mellitus w ithout complications Plan to address problem: Management as per primary care. Subjective Date of service: 06/23/18 Principal diagnosis: DKA Interval history: Patient awake. Resting on room air. O2 saturation 95%. No complaint of chest pain or shortness of breath or cough at this time.Patient morbidly Obese.Denies sleep problems. Objective Vital Signs - 12hr 06/23/18 06/23/18 06/23/18 03:59 04:01 09:27 Temperature 98.5 F 98.5 F 98.2 F Pulse Rate 74 73 76 Respiratory 19 16 18 Rate Blood Pressure 176/80 165/73 218/103 O2 Sat by Pulse 93 98 96 Oximetry 06/23/18 06/23/18 10:00 10:53 Temperature Pulse Rate 75 76 Respiratory Rate Blood Pressure 218/103 218/103 O2 Sat by Pulse Oximetry Constitutional: no acute distress, alert Eyes: non-icteric ENT: oropharynx moist Neck: supple, no lymphadenopathy Ascultation: Bilateral: diminished breath sounds Cardiovascular: regular rate and rhythm Gastrointestinal: normoactive bowel sounds, soft, non-tender Integumentary: normal Extremities: no cyanosis, no edema Neurologic: normal mental status Psychiatric: mood appropriate CBC and BMP: 06/21/18 20:16 06/23/18 05:30 Abnormal lab findings: Abnormal Labs 06/21/18 06/21/18 06/21/18 19:51 20:16 20:16 RDW 15.8 H Sodium 130 L Chloride 89.4 L Carbon Dioxide 17 L BUN 25 H Creatinine Glucose 350 H POC Glucose 300 H Calcium Magnesium ALT 6 L CK-MB (CK-2) CK-MB (CK-2) Rel Index Troponin T 0.200 H* Cholesterol 203 H LDL Cholesterol Direct 152 H 06/21/18 06/22/18 06/22/18 23:49 01:10 01:22 RDW Sodium Chloride Carbon Dioxide BUN Creatinine Glucose POC Glucose 230 H 203 H Calcium Magnesium 1.50 L ALT CK-MB (CK-2) CK-MB (CK-2) Rel Index Troponin T Cholesterol LDL Cholesterol Direct 06/22/18 06/22/18 06/22/18 01:29 01:29 02:54 RDW Sodium 132 L Chloride Carbon Dioxide 14 L BUN 24 H Creatinine Glucose 208 H POC Glucose 217 H Calcium Magnesium ALT CK-MB (CK-2) 6.4 H CK-MB (CK-2) Rel Index 9.8 H Troponin T 0.134 H* D Cholesterol LDL Cholesterol Direct 06/22/18 06/22/18 06/22/18 03:51 05:10 06:38 RDW Sodium Chloride Carbon Dioxide BUN Creatinine Glucose POC Glucose 210 H 200 H 199 H Calcium Magnesium ALT CK-MB (CK-2) CK-MB (CK-2) Rel Index Troponin T Cholesterol LDL Cholesterol Direct 06/22/18 06/22/18 06/22/18 07:36 08:38 09:44 RDW Sodium Chloride Carbon Dioxide BUN Creatinine Glucose POC Glucose 169 H 184 H 183 H Calcium Magnesium ALT CK-MB (CK-2) CK-MB (CK-2) Rel Index Troponin T Cholesterol LDL Cholesterol Direct 06/22/18 06/22/18 06/22/18 09:57 10:56 12:35 RDW Sodium 134 L Chloride Carbon Dioxide 18 L BUN 18 H Creatinine Glucose 190 H POC Glucose 169 H 175 H Calcium Magnesium ALT CK-MB (CK-2) 4.7 H CK-MB (CK-2) Rel Index 7.3 H Troponin T 0.076 H D Cholesterol LDL Cholesterol Direct 06/22/18 06/22/18 06/22/18 15:10 17:15 20:52 RDW Sodium 131 L Chloride Carbon Dioxide 20 L BUN Creatinine Glucose 244 H POC Glucose 246 H 243 H Calcium Magnesium ALT CK-MB (CK-2) CK-MB (CK-2) Rel Index Troponin T Cholesterol LDL Cholesterol Direct 06/22/18 06/23/18 06/23/18 22:38 05:30 08:08 RDW Sodium 131 L 130 L Chloride 96.7 L Carbon Dioxide BUN Creatinine 0.6 L Glucose 229 H 246 H POC Glucose 231 H Calcium 8.3 L Magnesium ALT CK-MB (CK-2) CK-MB (CK-2) Rel Index Troponin T Cholesterol LDL Cholesterol Direct
--- NOTE | 2018-06-23 14:51 | Progress Note ---
Assessment and Plan Assessment and plan: 68-year-old female with a past medical history of [id number] diabetes, hypertension, hypothyroidism, CAD (reported by pt but she had a cath 07/2015 showing normal coronary arteries and EF), obesity, hyperlipidemia presents to the hospital complaining of nausea and vomiting with decreased by mo uth intake 3 days and expressive aphasia. On previous medical record review pt had a similar presentation in 07/2015. She had n,v, dehydration, expressive aphasia, and elevated trop. She underwent negative cardiac and cva workup (cardiac cath, ct head, cta head/neck brain mri, ct abd/pelvis, cta chest). This time she admitted with DKA/possible CVA and elevated troponin. TIA had expressive aphasia, resolved CT head no acute finding MRI Brain done today, 06/23, unremarkable - cont Asp, Statin, neuro eval NSTEMI Type 2 - cannot start on heparin or therapeutic lovenox till MRI negative - consulted cardiology, cont aspirin and statin DKA -now resolved - presented with Nausea and vomiting, Hyperglycemia, Hypertensive emergency Hydralazine , Lisinopril IV hydralazine as needed History Interval history: Aphasia, now resolved No chest pain Hospitalist Physical - Physical exam Narrative exam: GEN: Not in acute distress, lying in bed, morbidly obese HEENT: Normocephalic, atraumatic, Neck: supple, No JVD heart: S1 and S2 reg, no murmurs, rubs or gallop Lungs: Clear to auscultation bilaterally, no wheeze Abd:soft, non tender, non distended, normal bowel sounds Ext: No edema,no clubbing, no cyanosis, Neuro:Awake,alert,oriented X 3, no focal signs, moves all ext Psych: normal mood - Constitutional Vitals: Temp Pulse Resp BP Pulse Ox 98.2 F 76 18 218/103 96 06/23/18 09:27 06/23/18 10:53 06/23/18 09:27 06/23/18 10:53 06/23/18 09:27 General appearance: Present: no acute distress Results - Labs CBC & Chem 7: 06/21/18 20:16 06/23/18 05:30 Labs: Laboratory Last Values WBC 10.2 K/mm3 (4.5-11.0) 06/21/18 20:16 RBC 4.67 M/mm3 (3.65-5.03) 06/21/18 20:16 Hgb 13.0 gm/dl (10.1-14.3) 06/21/18 20:16 Hct 39.6 % (30.3-42.9) 06/21/18 20:16 MCV 85 fl (79-97) 06/21/18 20:16 MCH 28 pg (28-32) 06/21/18 20:16 MCHC 33 % (30-34) 06/21/18 20:16 RDW 15.8 % (13.2-15.2) H 06/21/18 20:16 Plt Count 399 K/mm3 (140-440) 06/21/18 20:16 VBG pH 7.327 (7.320-7.420) 06/21/18 20:16 Sodium 130 mmol/L (137-145) L 06/23/18 05:30 Potassium 3.8 mmol/L (3.6-5.0) 06/23/18 05:30 Chloride 98.6 mmol/L (98-107) 06/23/18 05:30 Carbon Dioxide 22 mmol/L (22-30) 06/23/18 05:30 Anion Gap 13 mmol/L 06/23/18 05:30 BUN 11 mg/dL (7-17) 06/23/18 05:30 Creatinine 0.6 mg/dL (0.7-1.2) L 06/23/18 05:30 Estimated GFR > 60 ml/min 06/23/18 05:30 BUN/Creatinine Ratio 18 % 06/23/18 05:30 Glucose 246 mg/dL (65-100) H 06/23/18 05:30 POC Glucose 231 (70-105) H 06/23/18 08:08 Ketones Quantitative Large (Negative) 06/21/18 20:16 Calcium 8.5 mg/dL (8.4-10.2) 06/23/18 05:30 Phosphorus 2.50 mg/dL (2.5-4.5) 06/22/18 01:10 Magnesium 1.50 mg/dL (1.7-2.3) L 06/22/18 01:10 Total Bilirubin 0.50 mg/dL (0.1-1.2) 06/21/18 20:16 AST 13 units/L (5-40) 06/21/18 20:16 ALT 6 units/L (7-56) L 06/21/18 20:16 Alkaline Phosphatase 73 units/L (35-129) 06/21/18 20:16 Total Creatine Kinase 64 units/L (30-135) 06/22/18 09:57 CK-MB (CK-2) 4.7 ng/mL (0.0-4.0) H 06/22/18 09:57 CK-MB (CK-2) Rel Index 7.3 (0-4) H 06/22/18 09:57 Troponin T 0.076 ng/mL (0.00-0.029) H D 06/22/18 09:57 Total Protein 7.2 g/dL (6.3-8.2) 06/21/18 20:16 Albumin 4.0 g/dL (3.9-5) 06/21/18 20:16 Albumin/Globulin Ratio 1.3 % 06/21/18 20:16 Triglycerides 133 mg/dL (2-149) 06/21/18 20:16 Cholesterol 203 mg/dL (50-199) H 06/21/18 20:16 LDL Cholesterol Direct 152 mg/dL (50-130) H 06/21/18 20:16 HDL Cholesterol 55 mg/dL (40-59) 06/21/18 20:16 Cholesterol/HDL Ratio 3.69 % 06/21/18 20:16 Lipase 20 units/L (13-60) 06/21/18 20:16 Urine Color Yellow (Yellow) 06/22/18 02:10 Urine Turbidity Clear (Clear) 06/22/18 02:10 Urine pH 5.0 (5.0-7.0) 06/22/18 02:10 Ur Specific [place] 1.022 (1.003-1.030) 06/22/18 02:10 Urine Protein 30 mg/dl mg/dL (Negative) 06/22/18 02:10 Urine Glucose (UA) >=500 mg/dL (Negative) 06/22/18 02:10 Urine Ketones 80 mg/dL (Negative) 06/22/18 02:10 Urine Blood Sm (Negative) 06/22/18 02:10 Urine Nitrite Neg (Negative) 06/22/18 02:10 Urine Bilirubin Neg (Negative) 06/22/18 02:10 Urine Urobilinogen < 2.0 mg/dL (<2.0) 06/22/18 02:10 Ur Leukocyte Esterase Neg (Negative) 06/22/18 02:10 Urine WBC (Auto) 4.0 /HPF (0.0-6.0) 06/22/18 02:10 Urine RBC (Auto) 2.0 /HPF (0.0-6.0) 06/22/18 02:10 U Epithel Cells (Auto) 1.0 /HPF (0-13.0) 06/22/18 02:10 Urine Bacteria (Auto) 1+ /HPF (Negative) 06/22/18 02:10 Hyaline Casts 3 /LPF 06/22/18 02:10 Urine Mucus Few /HPF 06/22/18 02:10 Active Medications - Current Medications Current Medications: Generic Name Dose Route Start Last Admin Trade Name Freq PRN Reason Stop Dose Admin Acetaminophen 650 mg 06/21/18 22:50 Tylenol PO Q4H PRN Fever >101 Aspirin 325 mg 06/22/18 10:00 06/23/18 09:59 Aspirin PO 325 mg QDAY [facility]STINA Administration Atorvastatin Calcium 40 mg 06/22/18 22:00 06/22/18 22:31 Lipitor PO 40 mg QHS CH[facility]STINA Administration Cholecalciferol 1,000 unit 06/22/18 12:00 06/23/18 09:59 Vitamin D3 PO 1,000 unit DAILY [facility]STINA Administration Dextrose 0 ml 06/21/18 22:41 D50w (25gm) Syringe IV PRN PRN Hypoglycemia Enoxaparin Sodium 40 mg 06/23/18 22:00 Lovenox SUB-Q QDAY@2200 CHRISTINA Hydralazine HCl 10 mg 06/23/18 10:00 06/23/18 10:53 Apresoline IV 10 mg Q4HR PRN Administration SBP>170 or DBP>110 Hydralazine HCl 50 mg 06/23/18 14:00 Apresoline PO Q8HR CHRISTINA Sodium Chloride 1,000 mls @ 100 mls/hr 06/21/18 23:00 06/22/18 22:32 Nacl 0.9% 1000 Ml IV 100 mls/hr DIRECT [facility]STINA Administration Insulin Human NPH 5 unit 06/22/18 11:55 06/23/18 08:31 Humulin N SUB-Q 5 unit BIDDIAB [facility]STINA Administration Insulin Human Regular 0 units 06/22/18 16:30 06/23/18 08:30 Humulin R SUB-Q 2 units ACHS [facility]STINA Administration Protocol Levothyroxine Sodium 125 mcg 06/23/18 08:00 06/23/18 08:23 Synthroid PO Not Given DAILY@0600 [facility] Lisinopril 20 mg 06/24/18 10:00 Zestril PO QDAY [facility] Metoprolol Tartrate 25 mg 06/22/18 22:00 06/23/18 10:00 Lopressor PO 25 mg BID [facility]STINA Administration Miscellaneous Medication 10 mg 06/22/18 12:00 Dapagliflozin Propanediol [Farxiga] PO DAILY [facility] Ondansetron HCl 4 mg 06/21/18 22:49 06/22/18 04:07 Zofran IV 4 mg Q8H PRN Administration Nausea And Vomiting
--- NOTE | 2018-06-23 14:57 | Magnetic Resonance Report ---
MRI OF THE BRAIN WITHOUT CONTRAST: HISTORY: Aphasia, TIA PROCEDURE: Multiplanar, multisequence MR imaging of the brain without IV contrast was performed. FINDINGS: Compared to the CT head dated 06/21/18. The brain parenchyma signal intensity and its sow white interface are within normal limits on all sequences. No evidence for acute ischemia, hemorrhage or mass. No chronic infarct or extra-axial fluid collection. The midline structures are central. The basal cisterns are patent. Normal ventricular size. The orbital cavities and sella turcica demonstrate no abnormality. The visualized paranasal sinuses and mastoid air cells are well aerated. IMPRESSION: Unremarkable non-enhanced MRI of the brain.
--- NOTE | 2018-06-23 15:47 | Progress Note ---
Subjective Date of service: 06/23/18 Principal diagnosis: DKA Interval history: neuro exam is baseline she feels well and diabetic control is better explained to her do not believe this was TIA or Stroke plan d/c is OK Objective - Vital Sign Vital Signs - 12hr 06/23/18 06/23/18 06/23/18 03:59 04:01 09:27 Temperature 98.5 F 98.5 F 98.2 F Pulse Rate 74 73 76 Respiratory 19 16 18 Rate Blood Pressure 176/80 165/73 218/103 O2 Sat by Pulse 93 98 96 Oximetry 06/23/18 06/23/18 10:00 10:53 Temperature Pulse Rate 75 76 Respiratory Rate Blood Pressure 218/103 218/103 O2 Sat by Pulse Oximetry - Laboratory Findings CBC and BMP: 06/21/18 20:16 06/23/18 05:30 Abnormal Lab Findings: Abnormal Labs 06/21/18 06/21/18 06/21/18 19:51 20:16 20:16 RDW 15.8 H Sodium 130 L Chloride 89.4 L Carbon Dioxide 17 L BUN 25 H Creatinine Glucose 350 H POC Glucose 300 H Calcium Magnesium ALT 6 L CK-MB (CK-2) CK-MB (CK-2) Rel Index Troponin T 0.200 H* Cholesterol 203 H LDL Cholesterol Direct 152 H 06/21/18 06/22/18 06/22/18 23:49 01:10 01:22 RDW Sodium Chloride Carbon Dioxide BUN Creatinine Glucose POC Glucose 230 H 203 H Calcium Magnesium 1.50 L ALT CK-MB (CK-2) CK-MB (CK-2) Rel Index Troponin T Cholesterol LDL Cholesterol Direct 06/22/18 06/22/18 06/22/18 01:29 01:29 02:54 RDW Sodium 132 L Chloride Carbon Dioxide 14 L BUN 24 H Creatinine Glucose 208 H POC Glucose 217 H Calcium Magnesium ALT CK-MB (CK-2) 6.4 H CK-MB (CK-2) Rel Index 9.8 H Troponin T 0.134 H* D Cholesterol LDL Cholesterol Direct 06/22/18 06/22/18 06/22/18 03:51 05:10 06:38 RDW Sodium Chloride Carbon Dioxide BUN Creatinine Glucose POC Glucose 210 H 200 H 199 H Calcium Magnesium ALT CK-MB (CK-2) CK-MB (CK-2) Rel Index Troponin T Cholesterol LDL Cholesterol Direct 06/22/18 06/22/18 06/22/18 07:36 08:38 09:44 RDW Sodium Chloride Carbon Dioxide BUN Creatinine Glucose POC Glucose 169 H 184 H 183 H Calcium Magnesium ALT CK-MB (CK-2) CK-MB (CK-2) Rel Index Troponin T Cholesterol LDL Cholesterol Direct 06/22/18 06/22/18 06/22/18 09:57 10:56 12:35 RDW Sodium 134 L Chloride Carbon Dioxide 18 L BUN 18 H Creatinine Glucose 190 H POC Glucose 169 H 175 H Calcium Magnesium ALT CK-MB (CK-2) 4.7 H CK-MB (CK-2) Rel Index 7.3 H Troponin T 0.076 H D Cholesterol LDL Cholesterol Direct 06/22/18 06/22/18 06/22/18 15:10 17:15 20:52 RDW Sodium 131 L Chloride Carbon Dioxide 20 L BUN Creatinine Glucose 244 H POC Glucose 246 H 243 H Calcium Magnesium ALT CK-MB (CK-2) CK-MB (CK-2) Rel Index Troponin T Cholesterol LDL Cholesterol Direct 06/22/18 06/23/18 06/23/18 22:38 05:30 08:08 RDW Sodium 131 L 130 L Chloride 96.7 L Carbon Dioxide BUN Creatinine 0.6 L Glucose 229 H 246 H POC Glucose 231 H Calcium 8.3 L Magnesium ALT CK-MB (CK-2) CK-MB (CK-2) Rel Index Troponin T Cholesterol LDL Cholesterol Direct
[2018-06-23] MEDS: APRESOLINE PO SCH (21:33)
[2018-06-23] MEDS ORDERED: LOVENOX SUB-Q SCH (22:00)
[2018-06-24] MEDS: SYNTHROID PO SCH (05:19)
[2018-06-24] MEDS: APRESOLINE PO SCH ×3 (05:19→13:59)
[2018-06-24] MEDS: APRESOLINE IV PRN (08:06)
[2018-06-24] MEDS: HumuLIN R SUB-Q SCH ×3 (08:08→12:11)
[2018-06-24] MEDS ORDERED: LEXISCAN IV ONE (09:12)
[2018-06-24] MEDS ORDERED: ZOFRAN ONE (10:00)
[2018-06-24] MEDS ORDERED: ZESTRIL PO SCH (10:00)
[2018-06-24] MEDS: ZOFRAN IV PRN (10:04)
[2018-06-24] MEDS: LOPRESSOR PO SCH (11:15)
[2018-06-24] MEDS: VITAMIN D3 PO SCH (11:15)
[2018-06-24] MEDS: ASPIRIN PO SCH (11:15)
--- NOTE | 2018-06-24 11:18 | Progress Note ---
Assessment and Plan Patient awake. Resting on room air. O2 saturation 95%. No complaint of chest pain or shortness of breath or cough at this time.Patient morbidly Obese.Denies sleep problems. - Patient Problems (1) Chest pain Current Visit: No Status: Acute Qualifiers: Chest pain type: unspecified Qualified Code(s): R07.9 - Chest pain, unspecified Plan to address problem: Troponin is elevated. Recommend to consult cardiology. (2) Dehydration Current Visit: Yes Status: Acute Plan to address problem: Improved. (3) Nausea and vomiting Current Visit: Yes Status: Acute Plan to address problem: On Zofran. (4) Essential (primary) hypertension Current Visit: Yes Status: Chronic Plan to address problem: Management as per primary care. (5) Diabetes mellitus Current Visit: Yes Status: Chronic Qualifiers: Diabetes mellitus type: type 2 Diabetes mellitus complication status: w ithout complication Qualified Code(s): E11.9 - Type 2 diabetes mellitus w ithout complications Plan to address problem: Management as per primary care. Subjective Date of service: 06/24/18 Principal diagnosis: DKA Interval history: Patient awake. Resting on room air. O2 saturation 95%. No complaint of chest pain or shortness of breath or cough at this time.Patient morbidly Obese.Denies sleep problems. Objective Vital Signs - 12hr 06/24/18 06/24/18 06/24/18 00:25 04:22 05:19 Temperature 98.6 F 98.6 F Pulse Rate 71 70 70 Respiratory 20 18 Rate Blood Pressure 122/58 188/91 188/91 Blood Pressure [Left] O2 Sat by Pulse 96 97 Oximetry 06/24/18 06/24/18 08:00 08:06 Temperature 98.5 F Pulse Rate 87 Respiratory 18 Rate Blood Pressure 181/79 Blood Pressure 181/79 [Left] O2 Sat by Pulse 96 Oximetry Constitutional: no acute distress, alert Eyes: non-icteric ENT: oropharynx moist Neck: supple, no lymphadenopathy Ascultation: Bilateral: diminished breath sounds Cardiovascular: regular rate and rhythm Gastrointestinal: normoactive bowel sounds, soft, non-tender Integumentary: normal Extremities: no cyanosis, no edema Neurologic: normal mental status Psychiatric: mood appropriate CBC and BMP: 06/21/18 20:16 06/23/18 05:30 Abnormal lab findings: Abnormal Labs 06/21/18 06/21/18 06/21/18 19:51 20:16 20:16 RDW 15.8 H Sodium 130 L Chloride 89.4 L Carbon Dioxide 17 L BUN 25 H Creatinine Glucose 350 H POC Glucose 300 H Calcium Magnesium ALT 6 L CK-MB (CK-2) CK-MB (CK-2) Rel Index Troponin T 0.200 H* Cholesterol 203 H LDL Cholesterol Direct 152 H 06/21/18 06/22/18 06/22/18 23:49 01:10 01:22 RDW Sodium Chloride Carbon Dioxide BUN Creatinine Glucose POC Glucose 230 H 203 H Calcium Magnesium 1.50 L ALT CK-MB (CK-2) CK-MB (CK-2) Rel Index Troponin T Cholesterol LDL Cholesterol Direct 06/22/18 06/22/18 06/22/18 01:29 01:29 02:54 RDW Sodium 132 L Chloride Carbon Dioxide 14 L BUN 24 H Creatinine Glucose 208 H POC Glucose 217 H Calcium Magnesium ALT CK-MB (CK-2) 6.4 H CK-MB (CK-2) Rel Index 9.8 H Troponin T 0.134 H* D Cholesterol LDL Cholesterol Direct 06/22/18 06/22/18 06/22/18 03:51 05:10 06:38 RDW Sodium Chloride Carbon Dioxide BUN Creatinine Glucose POC Glucose 210 H 200 H 199 H Calcium Magnesium ALT CK-MB (CK-2) CK-MB (CK-2) Rel Index Troponin T Cholesterol LDL Cholesterol Direct 06/22/18 06/22/18 06/22/18 07:36 08:38 09:44 RDW Sodium Chloride Carbon Dioxide BUN Creatinine Glucose POC Glucose 169 H 184 H 183 H Calcium Magnesium ALT CK-MB (CK-2) CK-MB (CK-2) Rel Index Troponin T Cholesterol LDL Cholesterol Direct 06/22/18 06/22/18 06/22/18 09:57 10:56 12:35 RDW Sodium 134 L Chloride Carbon Dioxide 18 L BUN 18 H Creatinine Glucose 190 H POC Glucose 169 H 175 H Calcium Magnesium ALT CK-MB (CK-2) 4.7 H CK-MB (CK-2) Rel Index 7.3 H Troponin T 0.076 H D Cholesterol LDL Cholesterol Direct 06/22/18 06/22/18 06/22/18 15:10 17:15 20:52 RDW Sodium 131 L Chloride Carbon Dioxide 20 L BUN Creatinine Glucose 244 H POC Glucose 246 H 243 H Calcium Magnesium ALT CK-MB (CK-2) CK-MB (CK-2) Rel Index Troponin T Cholesterol LDL Cholesterol Direct 06/22/18 06/23/18 06/23/18 22:38 05:30 08:08 RDW Sodium 131 L 130 L Chloride 96.7 L Carbon Dioxide BUN Creatinine 0.6 L Glucose 229 H 246 H POC Glucose 231 H Calcium 8.3 L Magnesium ALT CK-MB (CK-2) CK-MB (CK-2) Rel Index Troponin T Cholesterol LDL Cholesterol Direct 06/23/18 06/23/18 06/24/18 16:20 21:09 07:21 RDW Sodium Chloride Carbon Dioxide BUN Creatinine Glucose POC Glucose 229 H 167 H 198 H Calcium Magnesium ALT CK-MB (CK-2) CK-MB (CK-2) Rel Index Troponin T Cholesterol LDL Cholesterol Direct
--- NOTE | 2018-06-24 11:56 | Progress Note ---
Assessment and Plan Echo reviewed - EF 60-65%. S/p lexiscan MPI stress test this AM which was negative. Currently stable cardiac status. Optimize BPs - hydralazine increased per primary. Pt may discharge home from cardiology standpoint. Recommend follow up in our office with Dr. Eros Burnett within 1-2 weeks of hospital discharge ([phone]). The patient has been seen in conjunction with Dr. Eros Burnett who agrees with the assessment and plan of care. - Patient Problems (1) DKA (diabetic ketoacidoses) Current Visit: Yes Status: Acute (2) NSTEMI (non-ST elevated myocardial infarction) Current Visit: Yes Status: Acute (3) Abnormal ECG Current Visit: Yes Status: Chronic (4) HTN (hypertension) Current Visit: Yes Status: Chronic (5) Hyperlipidemia Current Visit: Yes Status: Chronic (6) Diabetes mellitus Current Visit: Yes Status: Chronic Qualifiers: Diabetes mellitus type: type 2 Diabetes mellitus complication status: without complication Qualified Code(s): E11.9 - Type 2 diabetes mellitus without complications (7) Hypothyroidism Current Visit: Yes Status: Chronic Subjective Date of service: 06/24/18 Principal diagnosis: DKA Interval history: pt for stress test, no current complaints. Objective Last Vital Signs Temp 98.5 F 06/24/18 08:00 Pulse 87 06/24/18 08:00 Resp 18 06/24/18 08:00 BP 181/79 06/24/18 08:06 Pulse Ox 96 06/24/18 08:00 - Physical Examination General: No Apparent Distress HEENT: Positive: PERRL, Normocephaly, Mucus Membranes Moist Neck: Positive: neck supple, trachea midline Cardiac: Positive: Reg Rate and Rhythm, S1/S2 Lungs: Positive: clear to auscultation Neuro: Positive: Grossly Intact Abdomen: Positive: Soft. Negative: Tender Skin: Negative: Rash, Wound Musculoskeletal: No Pain Extremities: Absent: edema - Imaging and Cardiology EKG: report reviewed, image reviewed Echo: pending Cardiac cath: report reviewed (07/2015 for elevated troponins which showed normal coronaries and normal LV function) - EKG Sinus rhythms and dysrhythmias: sinus rhythm Repolarization changes or abnormalities: ST or T wave suggestive of ischemia
[2018-06-24 12:41] VITALS: BP 156/70
--- NOTE | 2018-06-24 13:29 | Discharge Summary ---
Providers - Providers Date of Admission: 06/21/18 22:03 Date of discharge: 06/24/18 Attending physician: KAROL BROOKS 06/21/18 21:56 Consult to Physician [CONS] Urgent Comment: Kenzie notified @ 09:00am- [facility] Consulting Provider: STEFFI GUERIN Physician Instructions: Reason For Exam: elevated trop 06/21/18 22:41 Consult to Dietitian/Nutrition [CONS] Routine Physician Instructions: Reason For Exam: DKA Reason for Consult: Nutrition Recommendations Reason for Consult: Malnutrition 06/21/18 22:51 Consult to Physician [CONS] Routine Comment: Sabino @ notified @ 0800- [facility] Consulting Provider: CALEB HANKS Physician Instructions: Reason For Exam: ICU ADMISSION FOR INSULIN DRIP 06/22/18 06:00 Consult to Physician [CONS] Routine Comment: Tried to call Siobhan as instructed, no answer Consulting Provider: NESTOR AGUIRRE Physician Instructions: Reason For Exam: TIA AND EXPRESSIVE APHASIA 06/22/18 11:51 Physical Therapy Evaluation and Treat [CONS] Routine Comment: Reason For Exam: placement Speech Therapy Evaluation and Treat [CONS] Routine Reason For Exam: aspiration 06/22/18 11:52 Consult to Physician [CONS] Routine Comment: Consulting Provider: HALI CABALLERO Physician Instructions: Reason For Exam: cva Primary care physician: UMAIR LEBLANC Hospitalization Condition: Fair Hospital course: Patient is 68 yo with a history of [id number] diabetes, hypertension, hypothyroidism, CAD , obesity, hyperlipidemia. She presented to the hospital complaining of nausea, vomiting, decreased oral intake and expressive aphasia. Labs show Diabetic ketoacidosis with CO2 of 17 , anion gap 28 and blood glucose 350. She also had elevated Troponin of 0.2. CT head was unremarkable.She was started on Insulin, iv fluid, Aspirin and admitted. Patient was evaluated by cardiology, Pulmonology and Neurology. She was diagnosed with non-STEMI type II. Blood glucose improved, she was transitioned to subcutanous Insulin. MRI Brain was unremarkable, negative for acute stroke. She was diagnosed with TIA. She subsequently discharged on 06/24/2018 to follow as an outpatient Total time spent on discharge, 31 mins Disposition: DC- TO HOME OR SELFCARE - Discharge Diagnoses (1) DKA (diabetic ketoacidoses) Status: Acute (2) Expressive aphasia Status: Acute (3) NSTEMI (non-ST elevated myocardial infarction) Status: Acute (4) TIA (transient ischemic attack) Status: Acute Qualifiers: Transient cerebral ischemia type: unspecified Qualified Code(s): G45.9 - Transient cerebral ischemic attack, unspecified (5) Hypertensive emergency Status: Acute (6) Hyponatremia Status: Acute Core Measure Documentation - Palliative Care Palliative Care/ Comfort Measures: Not Applicable - Core Measures Any of the following diagnoses?: none Exam - Constitutional Vitals: Temp Pulse Resp BP Pulse Ox 98.7 F 88 18 156/70 97 06/24/18 11:38 06/24/18 11:38 06/24/18 11:38 06/24/18 11:38 06/24/18 11:38 Plan Diet: low fat, low cholesterol, low salt, diabetic Additional Instructions: 1.Follow up with PCP in 1 week. 2.Follow up with Dr. Yordan Burnett in 1-2 weeks. Follow up with: UMAIR LEBLANC MD [Primary Care Provider] - 3-5 Days Prescriptions: hydrALAZINE [Apresoline TAB] 100 mg PO TID #90 tab Aspirin EC [Aspirin Enteric Coated TAB] 325 mg PO QDAY #30 tablet. AtorvaSTATin [Lipitor] 40 mg PO QHS #30 tablet Metoprolol [Lopressor TAB] 25 mg PO BID #60 tablet Lisinopril [Zestril TAB] 20 mg PO QDAY #30 tablet
--- NOTE | 2018-06-24 13:58 | Progress Note ---
Subjective Date of service: 06/24/18 Principal diagnosis: DKA Interval history: agree with discharge paln will follow up in the office Objective - Vital Sign Vital Signs - 12hr 06/24/18 06/24/18 06/24/18 04:22 05:19 08:00 Temperature 98.6 F 98.5 F Pulse Rate 70 70 87 Respiratory 18 18 Rate Blood Pressure 188/91 188/91 Blood Pressure 181/79 [Left] O2 Sat by Pulse 97 96 Oximetry 06/24/18 06/24/18 06/24/18 08:06 09:33 09:35 Temperature Pulse Rate 87 Respiratory Rate Blood Pressure 181/79 153/63 153/63 Blood Pressure [Left] O2 Sat by Pulse Oximetry 06/24/18 06/24/18 06/24/18 09:50 09:51 09:52 Temperature Pulse Rate 110 H 113 H 108 H Respiratory Rate Blood Pressure 146/68 149/68 145/65 Blood Pressure [Left] O2 Sat by Pulse Oximetry 06/24/18 06/24/18 06/24/18 09:53 09:54 09:55 Temperature Pulse Rate 115 H 130 H 130 H Respiratory Rate Blood Pressure 148/98 155/71 148/66 Blood Pressure [Left] O2 Sat by Pulse Oximetry 06/24/18 06/24/18 06/24/18 09:56 09:58 10:00 Temperature Pulse Rate Respiratory Rate Blood Pressure 148/98 155/71 148/66 Blood Pressure [Left] O2 Sat by Pulse Oximetry 06/24/18 11:38 Temperature 98.7 F Pulse Rate 88 Respiratory 18 Rate Blood Pressure 156/70 Blood Pressure [Left] O2 Sat by Pulse 97 Oximetry - Laboratory Findings CBC and BMP: 06/21/18 20:16 06/23/18 05:30 Abnormal Lab Findings: Abnormal Labs 06/21/18 06/21/18 06/21/18 19:51 20:16 20:16 RDW 15.8 H Sodium 130 L Chloride 89.4 L Carbon Dioxide 17 L BUN 25 H Creatinine Glucose 350 H POC Glucose 300 H Calcium Magnesium ALT 6 L CK-MB (CK-2) CK-MB (CK-2) Rel Index Troponin T 0.200 H* Cholesterol 203 H LDL Cholesterol Direct 152 H 06/21/18 06/22/18 06/22/18 23:49 01:10 01:22 RDW Sodium Chloride Carbon Dioxide BUN Creatinine Glucose POC Glucose 230 H 203 H Calcium Magnesium 1.50 L ALT CK-MB (CK-2) CK-MB (CK-2) Rel Index Troponin T Cholesterol LDL Cholesterol Direct 06/22/18 06/22/18 06/22/18 01:29 01:29 02:54 RDW Sodium 132 L Chloride Carbon Dioxide 14 L BUN 24 H Creatinine Glucose 208 H POC Glucose 217 H Calcium Magnesium ALT CK-MB (CK-2) 6.4 H CK-MB (CK-2) Rel Index 9.8 H Troponin T 0.134 H* D Cholesterol LDL Cholesterol Direct 06/22/18 06/22/18 06/22/18 03:51 05:10 06:38 RDW Sodium Chloride Carbon Dioxide BUN Creatinine Glucose POC Glucose 210 H 200 H 199 H Calcium Magnesium ALT CK-MB (CK-2) CK-MB (CK-2) Rel Index Troponin T Cholesterol LDL Cholesterol Direct 06/22/18 06/22/18 06/22/18 07:36 08:38 09:44 RDW Sodium Chloride Carbon Dioxide BUN Creatinine Glucose POC Glucose 169 H 184 H 183 H Calcium Magnesium ALT CK-MB (CK-2) CK-MB (CK-2) Rel Index Troponin T Cholesterol LDL Cholesterol Direct 06/22/18 06/22/18 06/22/18 09:57 10:56 12:35 RDW Sodium 134 L Chloride Carbon Dioxide 18 L BUN 18 H Creatinine Glucose 190 H POC Glucose 169 H 175 H Calcium Magnesium ALT CK-MB (CK-2) 4.7 H CK-MB (CK-2) Rel Index 7.3 H Troponin T 0.076 H D Cholesterol LDL Cholesterol Direct 06/22/18 06/22/18 06/22/18 15:10 17:15 20:52 RDW Sodium 131 L Chloride Carbon Dioxide 20 L BUN Creatinine Glucose 244 H POC Glucose 246 H 243 H Calcium Magnesium ALT CK-MB (CK-2) CK-MB (CK-2) Rel Index Troponin T Cholesterol LDL Cholesterol Direct 06/22/18 06/23/18 06/23/18 22:38 05:30 08:08 RDW Sodium 131 L 130 L Chloride 96.7 L Carbon Dioxide BUN Creatinine 0.6 L Glucose 229 H 246 H POC Glucose 231 H Calcium 8.3 L Magnesium ALT CK-MB (CK-2) CK-MB (CK-2) Rel Index Troponin T Cholesterol LDL Cholesterol Direct 06/23/18 06/23/18 06/24/18 16:20 21:09 07:21 RDW Sodium Chloride Carbon Dioxide BUN Creatinine Glucose POC Glucose 229 H 167 H 198 H Calcium Magnesium ALT CK-MB (CK-2) CK-MB (CK-2) Rel Index Troponin T Cholesterol LDL Cholesterol Direct 06/24/18 11:40 RDW Sodium Chloride Carbon Dioxide BUN Creatinine Glucose POC Glucose 222 H Calcium Magnesium ALT CK-MB (CK-2) CK-MB (CK-2) Rel Index Troponin T Cholesterol LDL Cholesterol Direct
--- NOTE | 2018-06-24 14:30 | Treadmill Report ---
REFERRING PHYSICIAN: Hospitalist service. PROTOCOL: The patient was brought to the stress lab in a postabsorptive state, given 10 mCi of technetium 99m at rest. The patient underwent rest imaging. The patient underwent Lexiscan stress test. At peak stress, the patient was given 26 mCi of technetium 99m. Shortly thereafter, the patient underwent stress imaging. Raw imaging reveals mild GI artifact, no significant motion artifact. SPECT images examined carefully in horizontal long axis, vertical long axis, and short axis views. There is normal homogenous uptake of radioisotope in all reported segments. No evidence of a significant fixed or reversible perfusion defects suggestive of prior infarction or ischemia. Gated wall motion reveals normal systolic thickening, calculated ejection fraction of 60%. No TID. CONCLUSIONS: 1. Normal myocardial perfusion scan without evidence of active ischemia or prior infarction. 2. Normal left ventricular systolic performance without evidence of transient ischemic dilatation or stress-induced segmental wall motion abnormalities. JOB# [id number] ELIJAH/LIZETT
[2018-06-25] MEDS ORDERED: BABY ASPIRIN PO SCH (10:00)
== END 2018-06-24 16:50 | disposition home or self-care (01) | DRG 280 ==
LOC: ED 19:45 → 4A 22:03 → CC1 23:43 → 4A 06-22 12:00
PROVIDERS: ADMIT Internal Medicine; ATTEND Internal Medicine
DX: I21.A1 Myocardial infarction type 2 (principal); E11.10 Type 2 diabetes mellitus with ketoacidosis without coma; R47.01 Aphasia; Z68.41 Body mass index [BMI] 40.0-44.9, adult; I16.1 Hypertensive emergency; I10 Essential (primary) hypertension; E86.0 Dehydration; R94.31 Abnormal electrocardiogram [ECG] [EKG]; E78.5 Hyperlipidemia, unspecified; E66.01 Morbid (severe) obesity due to excess calories; E03.9 Hypothyroidism, unspecified; I25.10 Atherosclerotic heart disease of native coronary artery without angina pectoris; Z79.899 Other long term (current) drug therapy; I25.2 Old myocardial infarction
CPT/HCPCS: 36415; 70450; 70551; 71045; 78452; 80048; 80053; 80061; 81001; 82010; 82550; 82553; 82805; 82962; 83690; 83735; 84100; 84484; 85027; 93005; 93010; 93017; 93306; 96374; G0378; A9270-GY; A9502; J0360; J1650; J1815; J2405; J2785; J3475; J7030

== ENCOUNTER 2018-08-10 08:54 | Outpatient (CLI) | payer MEDICARE ==
--- NOTE | 2018-08-10 09:35 | Mammography Report ---
Bilateral mammogram: Compared to 06/03/16. CAD study utilized. Findings: Predominance adipose tissue bilaterally. No mass or microcalcification. Benign calcification left breast. Normal axilla. Impression: Benign findings. Annual followup recommended. BI-RADS CATEGORY: 2 = Benign ACR BI-RADS MAMMOGRAPHIC CODES: 0 = Needs additional imaging evaluation; 1 = Negative; 2 = Benign; 3 = Probably benign; 4 = Suspicious; 5 = Malignant; 6 = Known biopsy-proven malignancy COMMENT: 1. Dense breast tissue, i.e., adenosis, fibrocystic changes, etc., may obscure an underlying neoplasm. 2. Approximately 10% of cancers are not detected with mammography. 3. A negative mammography report should not delay biopsy if a clinically suspicious mass is present. COMMENT: Patient follow-up letters are generated in [employer].
== END 2018-08-10 08:55 | disposition home or self-care (01) ==
LOC: SPVWC 08:54
PROVIDERS: ATTEND Internal Medicine
DX: Z12.31 Encounter for screening mammogram for malignant neoplasm of breast (principal); I10 Essential (primary) hypertension; E03.9 Hypothyroidism, unspecified
CPT/HCPCS: 77067